=== PATIENT | female | born 1955 | race American Indian/Alaskan Native ===

== ENCOUNTER 2019-01-25 15:12 | Inpatient (IN) | payer OTHER ==
[2019-01-25] MEDS ORDERED: ZOFRAN IV STA (17:02)
[2019-01-25] MEDS ORDERED: BENADRYL IV STA (17:02)
[2019-01-25] MEDS ORDERED: NACL 0.9% 1000 ML 1,000 ML IV ONE (17:02)
[2019-01-25] MEDS ORDERED: REGLAN IV STA (17:02)
--- NOTE | 2019-01-25 18:31 | Emergency Department Report ---
<VENKATESH ROSALES - Last Filed: 01/25/19 18:28> ED General Adult HPI - General Chief complaint: Neuro Symptoms/Deficit Stated complaint: HEADACHE Time Seen by Provider: 01/25/19 16:59 Source: patient, family, EMS Mode of arrival: Ambulatory Limitations: No Limitations - History of Present Illness Initial comments: 63-year-old obese female past medical history of hypertension presents to the emergency department complaining of a right-sided headache eligible by the factors. She reports no numbness or tingling is loss of bowel or bladder no neck pain no fevers, chills, sweats no chest pain or palpitations she tried to t amna Aleve [id number] did not resolve the symptoms persisted for further evaluation and treatment options. Radiation: non-radiation Quality: dull Consistency: constant, intermittent Improves with: none Worsens with: none Associated Symptoms: denies: chest pain, cough, diaphoresis, loss of appetite, nausea/vomiting, shortness of breath, syncope, weakness Treatments Prior to Arrival: none - Related Data Allergies Allergy/AdvReac Type Severity Reaction Status Date / Time No Known Allergies Allergy Unverified 01/25/19 15:37 ED Review of Systems Comment: All other systems reviewed and negative ED Past Medical Hx - Past Medical History Previous Medical History?: Yes Hx Hypertension: Yes Hx Diabetes: Yes - Surgical History Past Surgical History?: No - Social History Smoking Status: Current Every Day Smoker ED Physical Exam - General Limitations: No Limitations General appearance: alert, in no apparent distress - Head Head exam: Present: atraumatic, normocephalic - Eye Eye exam: Present: normal appearance, PERRL, EOMI - ENT ENT exam: Present: mucous membranes moist - Neck Neck exam: Present: normal inspection - Respiratory Respiratory exam: Present: normal lung sounds bilaterally. Absent: respiratory distress - Cardiovascular Cardiovascular Exam: Present: regular rate, normal rhythm. Absent: systolic murmur, diastolic murmur, rubs, gallop - GI/Abdominal GI/Abdominal exam: Present: soft, normal bowel sounds - Extremities Exam Extremities exam: Present: normal inspection - Back Exam Back exam: Present: normal inspection - Neurological Exam Neurological exam: Present: alert, oriented X3, CN II-XII intact, normal gait, reflexes normal. Absent: motor sensory deficit - Psychiatric Psychiatric exam: Present: normal affect, normal mood - Skin Skin exam: Present: warm, dry, intact, normal color. Absent: rash ED Disposition Clinical Impression: Non-hemorrhagic stroke Headache Qualifiers: Headache type: tension-type Headache chronicity pattern: acute headache Intractability: not intractable Qualified Code(s): G44.209 - Tension-type headache, unspecified, not intractable Disposition: DC-01 TO HOME OR SELFCARE Condition: Stable Referrals: PRIMARY CARE, [Primary Care Provider] - 3-5 Days <ALVARADO HARMAN - Last Filed: 01/25/19 20:20> ED Review of Systems ROS: Stated complaint: HEADACHE Other details as noted in HPI ED Course Vital Signs 01/25/19 01/25/19 01/25/19 15:36 15:48 16:00 Temperature 98.1 F Pulse Rate 84 81 Respiratory 18 18 13 Rate Blood Pressure 149/77 149/77 O2 Sat by Pulse 95 95 Oximetry 01/25/19 01/25/19 01/25/19 16:30 17:00 18:00 Temperature Pulse Rate 87 Respiratory 13 Rate Blood Pressure 162/92 162/92 207/119 O2 Sat by Pulse 94 96 94 Oximetry 01/25/19 01/25/19 18:30 20:00 Temperature Pulse Rate 80 Respiratory 14 Rate Blood Pressure 165/79 O2 Sat by Pulse 92 93 Oximetry - Reevaluation(s) Reevaluation #1: 01/25/19 19:23 Patient received from SHELLY Rosales at [address] of head. 01/25/19 19:23 Dr. Dhillon informed me of the CT result findings of Subacute nonhemorrhagic right posterior cerebral artery territory infarction. Labs ordered. 01/25/19 19:25 01/25/19 19:27 Consulted hospitalist for admission. Reevaluation #2: 01/25/19 20:[address] Myers with [facility]. Instructed to admit to hospitalist for MRI/MRA and vessel study. Patient given ASA 325 mg po once while in ER. Consulted hospitalist Dr. Avila and Caitlyn who agreed to admit patient. ED Medical Decision Making - Lab Data Result diagrams: 01/25/19 19:22 01/25/19 19:22 Lab Results 01/25/19 01/25/19 01/25/19 Range/Units 19:22 19:22 19:22 WBC 11.1 H (4.5-11.0) K/mm3 RBC 5.11 H (3.65-5.03) M/mm3 Hgb 14.4 H (10.1-14.3) gm/dl Hct 44.5 H (30.3-42.9) % MCV 87 (79-97) fl MCH 28 (28-32) pg MCHC 32 (30-34) % RDW 13.8 (13.2-15.2) % Plt Count 246 (140-440) K/mm3 Lymph % (Auto) 28.1 (13.4-35.0) % [place] % (Auto) 6.6 (0.0-7.3) % Eos % (Auto) 0.6 (0.0-4.3) % Baso % (Auto) 0.6 (0.0-1.8) % Lymph # 3.1 (1.2-5.4) K/mm3 Wise # 0.7 (0.0-0.8) K/mm3 Eos # 0.1 (0.0-0.4) K/mm3 Baso # 0.1 (0.0-0.1) K/mm3 Seg Neutrophils % 64.1 (40.0-70.0) % Seg Neutrophils # 7.1 (1.8-7.7) K/mm3 PT 13.0 (12.2-14.9) Sec. INR 1.01 (0.87-1.13) APTT 27.5 (24.2-36.6) Sec. Sodium 139 (137-145) mmol/L Potassium 4.3 (3.6-5.0) mmol/L Chloride 103.1 (98-107) mmol/L Carbon Dioxide 26 (22-30) mmol/L Anion Gap 14 mmol/L BUN 12 (7-17) mg/dL Creatinine 0.5 L (0.7-1.2) mg/dL Estimated GFR > 60 ml/min BUN/Creatinine Ratio 24 % Glucose 183 H (65-100) mg/dL Calcium 10.6 H (8.4-10.2) mg/dL Total Bilirubin 0.60 (0.1-1.2) mg/dL AST 9 (5-40) units/L ALT 8 (7-56) units/L Alkaline Phosphatase 114 (35-129) units/L Total Protein 7.5 (6.3-8.2) g/dL Albumin 4.0 (3.9-5) g/dL Albumin/Globulin Ratio 1.1 % - Radiology Data Radiology results: report reviewed CT head/brain wo con INDICATION / CLINICAL INFORMATION: 63 years Female; headache. TECHNIQUE: Routine CT head without contrast. All CT scans at this location are performed using CT dose reduction for ALARA by means of automated exposure control. COMPARISON: None. FINDINGS: BRAIN / INTRACRANIAL CONTENTS: An abnormal CT scan. Subacute nonhemorrhagic right posterior cerebral artery territory infarction is seen. There is mass effect over the atrium of the right lateral ventricle. Right thalamus is not involved. I do not see acute hemorrhage, midline shift. Periventricular low density areas are seen in both cerebral hemispheres probably due to microvascular faint angiopathy. Volume loss is seen in the cerebellar vermis and inferior left cerebellar hemisphere.. Compensatory enlargement of the fourth ventricle is seen. CRANIOCERVICAL JUNCTION: No significant abnormality. ORBITS: No significant abnormality of visualized orbits. SINUSES / MASTOIDS: No significant abnormality of the visualized paranasal sinuses or mastoid air cells. ADDITIONAL FINDINGS: None. IMPRESSION: Subacute nonhemorrhagic right posterior cerebral artery territory infarction. I discussed findings with Dr. Dhillon at 5:42 PM Central daylight saving time. Critical care attestation.: If time is entered above; I have spent that time in minutes in the direct care of this critically ill patient, excluding procedure time. ED Disposition Is pt being admited?: Yes Does the pt Need Aspirin: Yes
--- NOTE | 2019-01-25 18:47 | Cat Scan Report ---
CT head/brain wo con INDICATION / CLINICAL INFORMATION: 63 years Female; headache. TECHNIQUE: Routine CT head without contrast. All CT scans at this location are performed using CT dos e reduction for ALARA by means of automated exposure control. COMPARISON: None. FINDINGS: BRAIN / INTRACRANIAL CONTENTS: An abnormal CT scan. Subacute nonhemorrhagic right posterior cerebral artery territory infarction is seen. There is mass e ffect over the atrium of the right lateral ventricle. Right thalamus is not involved. I do not see ac jada hemorrhage, midline shift. Periventricular low density areas are seen in both cerebral hemispheres probably due to microvascular faint angiopathy. Volume loss is seen in the cerebellar vermis and inferior left cerebellar hemisphere.. Compensatory enlargement of the fourth ventricle is seen. CRANIOCERVICAL JUNCTION: No significant abnormality. ORBITS: No significant abnormality of visualized orbits. SINUSES / MASTOIDS: No significant abnormality of the visualized paranasal sinuses or mastoid air alden ls. ADDITIONAL FINDINGS: None. IMPRESSION: Subacute nonhemorrhagic right posterior cerebral artery territory infarction. I discussed findings with Dr. Dhillon at 5:42 PM Central daylight saving time. Signer Name: Jose Miguel Lomeli MD Signed: 01/25/2019 6:42 PM Workstation Name: [id number]
[2019-01-25] MEDS ORDERED: NORCO 5/325 PO ONE (19:43)
[2019-01-25 19:44] LABS: Basophils # (Auto) 0.1 K/mm3 (0.0-0.1); Basophils % (Auto) 0.6 % (0.0-1.8); Eosinophils # (Auto) 0.1 K/mm3 (0.0-0.4); Eosinophils % (Auto) 0.6 % (0.0-4.3); Hematocrit 44.5 % (30.3-42.9); Hemoglobin 14.4 gm/dl (10.1-14.3); Lymphocytes # (Auto) 3.1 K/mm3 (1.2-5.4); Lymphocytes % (Auto) 28.1 % (13.4-35.0); Mean Corpuscular HGB Conc 32 % (30-34); Mean Corpuscular Volume 87 fl (79-97); Monocytes # (Auto) 0.7 K/mm3 (0.0-0.8); Monocytes % (Auto) 6.6 % (0.0-7.3); Platelet Count 246 K/mm3 (140-440); Red Blood Count 5.11 M/mm3 (3.65-5.03); Red Cell Distribution Width 13.8 % (13.2-15.2)
[2019-01-25 19:56] LABS: INR 1.01 (0.87-1.13)
[2019-01-25 19:57] LABS: Partial Thromboplastin Time 27.5 Sec. (24.2-36.6)
[2019-01-25 20:06] LABS: Alanine Aminotransferase 8 units/L (7-56); BUN/Creatinine Ratio 24; Blood Urea Nitrogen 12 mg/dL (7-17); Calcium 10.6 mg/dL (8.4-10.2); Hemolysis Index 4
[2019-01-25] MEDS ORDERED: ASPIRIN PO ONE (20:13)
[2019-01-25] MEDS ORDERED: REGLAN PO PRN (20:18)
[2019-01-25] MEDS ORDERED: MILK OF MAGNESIA PO PRN (20:18)
[2019-01-25] MEDS ORDERED: TYLENOL PO PRN (20:18)
[2019-01-25] MEDS ORDERED: SODIUM CHLORIDE FLUSH SYRINGE 10 ML IV PRN (20:18)
[2019-01-25] MEDS ORDERED: DULCOLAX PR PRN (20:18)
[2019-01-25] MEDS ORDERED: ZOFRAN IV PRN (20:18)
[2019-01-25] MEDS ORDERED: D50W (25GM) Syringe IV PRN (20:25)
--- NOTE | 2019-01-25 20:56 | History and Physical Report ---
History of Present Illness Date of examination: 01/25/19 Date of admission: 01/25/19 20:18 Chief complaint: Headache, left lower extremity weakness, and left hand numbness History of present illness: 63-year-old -[place] female who is ongoing smoker history of hypertension and diabetes who presents to [facility] ED with complaints of right temporal headache, left hand numbness, left lower extremity weakness, patient gait, and left visual deficits. Patient states her symptoms began Wednesday night when she was sitting in the bathtub and realized that she was unable to get out without assistance. Shortly after she started experiencing right temporal headache, which she describes as a sharp nagging pain and rates it a 9/10. On Wednesday patient started developing an left hand numbness and left visual deficits. Her headache progress without cessation that she decided to come into the ED for further evaluation. She states that she is compliant with her metformin and insulin. However when asked about her compliance with antihypertensive meds admits to partial compliance. Admits to smoking a pack of cigarettes per day for over 40 years. Denies: Nausea, vomiting, diaphoresis, chest pain, slurred speech, cough, shortness of breath, and dyspnea on exertion Past History Past Medical History: diabetes, hypertension Past Surgical History: No surgical history Social history: Lives alone, smoking (smokes one pack per day for the last 40 ye ars) Family history: no significant family history Medications and Allergies Allergies Allergy/AdvReac Type Severity Reaction Status Date / Time No Known Allergies Allergy Unverified 01/25/19 15:37 Home Medications Medication Instructions Recorded Confirmed Last Taken Type Insulin NPH Hum/Reg Insulin Hm 15 units SQ BID 01/25/19 01/25/19 Unknown History [Relion Novolin 70-30 Vial] Metformin HCl [metFORMIN] 1,000 mg PO BID 01/25/19 01/25/19 Unknown History Active Meds: Active Medications Acetaminophen (Tylenol) 650 mg PO Q4H PRN PRN Reason: Pain, Mild (1-3) Acetaminophen (Tylenol) 650 mg PO Q4H PRN PRN Reason: Pain MILD(1-3)/Fever >100.5/[place] Aspirin (Baby Aspirin) 81 mg PO QDAY [place] Atorvastatin Calcium (Lipitor) 40 mg PO QHS [place] Bisacodyl (Dulcolax) 10 mg ND QDAY PRN PRN Reason: Constipation Dextrose (D50w (25gm) Syringe) 50 ml IV PRN PRN PRN Reason: Hypoglycemia Docusate Sodium (Colace) 100 mg PO BID [place] Enoxaparin Sodium (Lovenox) 40 mg SUB-Q QDAY [place] Hydralazine HCl (Apresoline) 10 mg IV Q4HR PRN PRN Reason: Blood Pressure Sodium Chloride (Nacl 0.9% 1000 Ml) 1,000 mls @ 75 mls/hr IV DIRECT [place] Insulin Human Isoph/Insulin Regular (Humulin 70/30) 15 unit SUB-Q BID [place] Insulin Human Lispro (Humalog) 0 unit SUB-Q ACHS [place]; Protocol Magnesium Hydroxide (Milk Of Magnesia) 30 ml PO Q4H PRN PRN Reason: Constipation Metoclopramide HCl (Reglan) 10 mg PO Q6H PRN PRN Reason: Nausea And Vomiting Miscellaneous Medication (Metformin Hcl [Metformin]) 1,000 mg PO BID [place] Nicotine (Habitrol) 14 mg TD QDAY [place] Ondansetron HCl (Zofran) 4 mg IV Q6H PRN PRN Reason: Nausea And Vomiting Oxycodone/Acetaminophen (Percocet 5/325) 1 tab PO Q6H PRN PRN Reason: Pain, Moderate (4-6) Sodium Chloride (Sodium Chloride Flush Syringe 10 Ml) 10 ml IV PRN PRN PRN Reason: LINE FLUSH Review of Systems All systems: negative Eyes: left: decreased vision Musculoskeletal: arm numbness/tingling (left hand), gait dysfunction, other (left lower extremity weakness) Neurological: headaches (right temporal region) Exam - Constitutional Vitals: Temp Pulse Resp BP Pulse Ox 98.1 F 80 14 165/79 93 01/25/19 15:36 01/25/19 20:00 01/25/19 20:00 01/25/19 20:00 01/25/19 20:00 Results - Labs CBC & Chem 7: 01/25/19 19:22 01/25/19 19:22 Labs: Laboratory Last Values WBC 11.1 K/mm3 (4.5-11.0) H 01/25/19 19:22 RBC 5.11 M/mm3 (3.65-5.03) H 01/25/19 19:22 Hgb 14.4 gm/dl (10.1-14.3) H 01/25/19 19: Hct 44.5 % (30.3-42.9) H 01/25/19 19: MCV 87 fl (79-97) 01/25/19 19: MCH 28 pg (28-32) 01/25/19 19: MCHC 32 % (30-34) 01/25/19 19: RDW 13.8 % (13.2-15.2) 01/25/19: Plt Count 246 K/mm3 (140-440) 01/25/19 19: Lymph % (Auto) 28.1 % (13.4-35.0) 01/25/19: [place] % (Auto) 6.6 % (0.0-7.3) 01/25/19: Eos % (Auto) 0.6 % (0.0-4.3) 01/25/19: Baso % (Auto) 0.6 % (0.0-1.8) 01/25/19: Lymph # 3.1 K/mm3 (1.2-5.4) 01/25/19: [place] # 0.7 K/mm3 (0.0-0.8) 01/25/19: Eos # 0.1 K/mm3 (0.0-0.4) 01/25/19: Baso # 0.1 K/mm3 (0.0-0.1) 01/25/19: Seg Neutrophils % 64.1 % (40.0-70.0) 01/25/19: Seg Neutrophils # 7.1 K/mm3 (1.8-7.7) 01/25/19: PT 13.0 Sec. (12.2-14.9) 01/25/19: INR 1.01 (0.87-1.13) 01/25/19: APTT 27.5 Sec. (24.2-36.6) 01/25/19 19:22 Sodium 139 mmol/L (137-145) 01/25/19 19:22 Potassium 4.3 mmol/L (3.6-5.0) 01/25/19: Chloride 103.1 mmol/L (98-107) 01/25/19 19:22 Carbon Dioxide 26 mmol/L (22-30) 01/25/19 19:22 Anion Gap 14 mmol/L 01/25/19 19:22 BUN 12 mg/dL (7-17) 01/25/19 19:22 Creatinine 0.5 mg/dL (0.7-1.2) L 01/25/19 19:22 Estimated GFR > 60 ml/min 01/25/19 19:22 BUN/Creatinine Ratio 24 % 01/25/19 19:22 Glucose 183 mg/dL (65-100) H 01/25/19 19:22 Calcium 10.6 mg/dL (8.4-10.2) H 01/25/19 19:22 Total Bilirubin 0.60 mg/dL (0.1-1.2) 01/25/19 19:22 AST 9 units/L (5-40) 01/25/19 19:22 ALT 8 units/L (7-56) 01/25/19 19:22 Alkaline Phosphatase 114 units/L (35-129) 01/25/19 19:22 Total Protein 7.5 g/dL (6.3-8.2) 01/25/19 19:22 Albumin 4.0 g/dL (3.9-5) 01/25/19 19:22 Albumin/Globulin Ratio 1.1 % 01/25/19 19:22 - Imaging and Cardiology Imaging and Cardiology: CT Head: FINDINGS: BRAIN / INTRACRANIAL CONTENTS: An abnormal CT scan. Subacute nonhemorrhagic right posterior cerebral artery territory infarction is seen. There is mass effect over the atrium of the right lateral ventricle. Right thalamus is not involved. I do not see acute hemorrhage, midline shift. Periventricular low density areas are seen in both cerebral hemispheres probably due to microvascular faint angiopathy. Volume loss is seen in the cerebellar vermis and inferior left cerebellar hemisphere. Compensatory enlargement of the fourth ventricle is seen. CRANIOCERVICAL JUNCTION: No significant abnormality. ORBITS: No significant abnormality of visualized orbits. SINUSES / MASTOIDS: No significant abnormality of the visualized paranasal sinuses or mastoid air cells. ADDITIONAL FINDINGS: None. IMPRESSION: Subacute nonhemorrhagic right posterior cerebral artery territory infarction. Assessment and Plan Assessment and plan: 63-year-old -[place] female who is ongoing smoker history of hypertension and diabetes who presents to [facility] ED with complaints of right temporal headache, left hand numbness, left lower extremity weakness, patient gait, and left visual deficits for the past 2 days. CVA -CT Head showed Subacute nonhemorrhagic right posterior cerebral artery territory infarction. -MRI/ MRA Head, bilateral carotid Doppler, Echo pending -Tele Neuro consulted and recommendations appreciated -Neurology consulted -Neuro Checks -PT/OT eval pending -Lipid panel pending -For permissive hypertension -Not candidate for TPA -Start ASA and statin Hypertensive urgency -BP on admission 207/119 -Hx Hypertension -Questionable compliance with antihypertensive meds -Continue to monitor BP -Allow for permissive hypertension -IV antihypertensive when necessary Headache -Likely secondary to hypertensive urgency and CVA -Continue supportive care DM2 -HgbA1c pending -Continue metformin and scheduled insulin -SSI coverage prn Tobacco abuse -Current every day smoker -Counseled for cessation -Nicotine patch when necessary Leukocytosis -Likely inflammatory response -WBC 11.1 -Afebrile -Continue to monitor CBC DVT PPX -on Lovenox Advance Directives: No VTE prophylaxis?: Chemical Plan of care discussed with patient/family: Yes
[2019-01-25] MEDS ORDERED: NACL 0.9% 1000 ML 1,000 ML IV SCH (21:00)
[2019-01-25] MEDS: HumaLOG SUB-Q SCH (22:18)
[2019-01-25] MEDS: COLACE PO SCH (22:18)
[2019-01-26] MEDS: GLUCOPHAGE PO SCH ×3 (00:02→17:31)
[2019-01-26] MEDS: APRESOLINE IV PRN ×2 (03:53→17:26)
[2019-01-26] MEDS: PERCOCET 5/325 PO PRN ×3 (03:55→17:27)
[2019-01-26 05:50] LABS: Basophils # (Auto) 0.1 K/mm3 (0.0-0.1); Basophils % (Auto) 0.5 % (0.0-1.8); Eosinophils # (Auto) 0.1 K/mm3 (0.0-0.4); Eosinophils % (Auto) 0.7 % (0.0-4.3); Hematocrit 41.8 % (30.3-42.9); Hemoglobin 13.8 gm/dl (10.1-14.3); Lymphocytes # (Auto) 3.4 K/mm3 (1.2-5.4); Lymphocytes % (Auto) 28.5 % (13.4-35.0); Mean Corpuscular HGB Conc 33 % (30-34); Mean Corpuscular Volume 86 fl (79-97); Monocytes % (Auto) 8.3 % (0.0-7.3); Platelet Count 224 K/mm3 (140-440); Red Blood Count 4.86 M/mm3 (3.65-5.03); Red Cell Distribution Width 13.5 % (13.2-15.2)
[2019-01-26 06:59] LABS: BUN/Creatinine Ratio 28; Blood Urea Nitrogen 11 mg/dL (7-17); Calcium 10.5 mg/dL (8.4-10.2); Chol/HDL Ratio 3.56 %; HDL Cholesterol 53 mg/dL (40-59); Hemolysis Index 0; LDL Cholesterol,Direct 118 mg/dL (50-130)
--- NOTE | 2019-01-26 08:34 | Vascular Lab Report ---
BILATERAL CAROTID DOPPLER ULTRASOUND INDICATION : stroke TECHNIQUE: Grayscale and color Doppler imaging performed through the neck. COMPARISON: None FINDINGS: Right: There is no significant atherosclerotic disease. Peak systolic velocity in the CCA is 87 cm/ s with end-diastolic velocity of 21 cm/s. Peak systolic velocity in the proximal ICA is 72 cm/s with end-diastolic velocity of 23 cm/s. ICA to CCA ratio is less than 2. There is antegrade flow in the E CA and the vertebral artery. Left: There is no significant atherosclerotic disease. Peak systolic velocity in the CCA is 85 cm/s w ith end-diastolic velocity of 14 cm/s. Peak systolic velocity in the proximal ICA is 116 cm/s with en d-diastolic velocity of 16 cm/s. ICA to CCA ratio is less than 2. There is antegrade flow in the ECA and the vertebral artery. IMPRESSION: No hemodynamically significant stenosis by NASCET criteria. There is less than 50% lumina l narrowing throughout both carotid systems. Signer Name: Corey Shields Jr, MD Signed: 01/26/2019 8:29 AM Workstation Name: [id number]
[2019-01-26] MEDS: BABY ASPIRIN PO SCH (10:21)
[2019-01-26] MEDS: COLACE PO SCH ×2 (10:22→21:48)
[2019-01-26] MEDS: HABITROL TD SCH (10:22)
[2019-01-26] MEDS: ENOXAPARIN SUB-Q SCH (10:23)
[2019-01-26] MEDS: HumaLOG SUB-Q SCH ×4 (10:36→21:57)
--- NOTE | 2019-01-26 14:18 | Progress Note ---
Assessment and Plan Assessment and plan: 63-year-old -Togolese female who is ongoing smoker history of hypertension and diabetes who presents to [facility] ED with complaints of right temporal headache, left hand numbness, left lower extremity weakness, patient gait, and left visual deficits for the past 2 days. CVA -CT Head showed Subacute nonhemorrhagic right posterior cerebral artery territory infarction. -MRI/ MRA Head, bilateral carotid Doppler, Echo pending -Neurology consulted and said will see the patient -Telemetry neurology recommended not a candidate for TPA -PT/OT evaluation -Start ASA and statin. LDL is 112 Hypertensive urgency -BP is 184/103 -Hx Hypertension -Allow for permissive hypertension -IV antihypertensive when necessary Headache -Likely secondary to hypertensive urgency and CVA -Continue supportive care - 10 control DM2 -HgbA1c is 9.3 -Continue metformin and scheduled insulin -SSI coverage prn Tobacco abuse -Current every day smoker -Counseled for cessation -Nicotine patch Leukocytosis -Likely reactive -No sign of infection, we will continue to monitor DVT PPX -on Lovenox Disposition; will finish w/u. Discussed with CM, patient is unfunded and her house has stairs. History Interval history: Patient was seen and evaluated this morning at the bedside Patient has left-sided weakness and neglect Hospitalist Physical - Physical exam Narrative exam: Not in cardiopulmonary distress. The patient is obese. Vital signs as documented. Head exam is unremarkable. No scleral icterus . Neck is without jugular venous distension, thyromegaly, or carotid bruits. Lungs are clear to auscultation. Cardiac exam reveals regular rate and Rhythm. Abdominal exam reveals normal bowel sounds. Extremities are nonedematous and both femoral and pedal pulses are normal. 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 - Constitutional Vitals: Temp Pulse Resp BP Pulse Ox 98.2 F 75 18 184/103 99 01/26/19 03:35 01/26/19 10:18 01/26/19 03:35 01/26/19 10:18 01/26/19 10:18 Results - Labs CBC & Chem 7: 01/26/19 05:02 01/26/19 05:02 Labs: Laboratory Last Values WBC 11.8 K/mm3 (4.5-11.0) H 01/26/19 05:02 RBC 4.86 M/mm3 (3.65-5.03) 01/26/19 05:02 Hgb 13.8 gm/dl (10.1-14.3) 01/26/19 05:02 Hct 41.8 % (30.3-42.9) 01/26/19 05:02 MCV 86 fl (79-97) 01/26/19 05:02 MCH 28 pg (28-32) 01/26/19 05:02 MCHC 33 % (30-34) 01/26/19 05:02 RDW 13.5 % (13.2-15.2) 01/26/19 05:02 Plt Count 224 K/mm3 (140-440) 01/26/19 05:02 Lymph % (Auto) 28.5 % (13.4-35.0) 01/26/19 05:02 [place] % (Auto) 8.3 % (0.0-7.3) H 01/26/19 05:02 Eos % (Auto) 0.7 % (0.0-4.3) 01/26/19 05:02 Baso % (Auto) 0.5 % (0.0-1.8) 01/26/19 05:02 Lymph # 3.4 K/mm3 (1.2-5.4) 01/26/19 05:02 [place] # 1.0 K/mm3 (0.0-0.8) H 01/26/19 05:02 Eos # 0.1 K/mm3 (0.0-0.4) 01/26/19 05:02 Baso # 0.1 K/mm3 (0.0-0.1) 01/26/19 05:02 Seg Neutrophils % 62.0 % (40.0-70.0) 01/26/19 05:02 Seg Neutrophils # 7.3 K/mm3 (1.8-7.7) 01/26/19 05:02 PT 13.0 Sec. (12.2-14.9) 01/25/19 19:22 INR 1.01 (0.87-1.13) 01/25/19 19:22 APTT 27.5 Sec. (24.2-36.6) 01/25/19 19:22 Sodium 140 mmol/L (137-145) 01/26/19 05:02 Potassium 3.8 mmol/L (3.6-5.0) 01/26/19 05:02 Chloride 102.4 mmol/L (98-107) 01/26/19 05:02 Carbon Dioxide 25 mmol/L (22-30) 01/26/19 05:02 Anion Gap 16 mmol/L 01/26/19 05:02 BUN 11 mg/dL (7-17) 01/26/19 05:02 Creatinine 0.4 mg/dL (0.7-1.2) L 01/26/19 05:02 Estimated GFR > 60 ml/min 01/26/19 05:02 BUN/Creatinine Ratio 28 % 01/26/19 05:02 Glucose 157 mg/dL (65-100) H 01/26/19 05:02 POC Glucose 175 (70-105) H 01/26/19 12:13 Hemoglobin A1c 9.3 % (4-6) H 01/26/19 05:02 Calcium 10.5 mg/dL (8.4-10.2) H 01/26/19 05:02 Total Bilirubin 0.60 mg/dL (0.1-1.2) 01/25/19 19:22 AST 9 units/L (5-40) 01/25/19 19:22 ALT 8 units/L (7-56) 01/25/19 19:22 Alkaline Phosphatase 114 units/L (35-129) 01/25/19 19:22 Troponin T < 0.010 ng/mL (0.00-0.029) 01/26/19 05:02 Total Protein 7.5 g/dL (6.3-8.2) 01/25/19 19:22 Albumin 4.0 g/dL (3.9-5) 01/25/19 19:22 Albumin/Globulin Ratio 1.1 % 01/25/19 19:22 Triglycerides 149 mg/dL (2-149) 01/26/19 05:02 Cholesterol 189 mg/dL (50-199) 01/26/19 05:02 LDL Cholesterol Direct 118 mg/dL (50-130) 01/26/19 05:02 HDL Cholesterol 53 mg/dL (40-59) 01/26/19 05:02 Cholesterol/HDL Ratio 3.56 % 01/26/19 05:02 Active Medications - Current Medications Current Medications: Generic Name Dose Route Start Last Admin Trade Name Freq PRN Reason Stop Dose Admin Acetaminophen 650 mg 01/25/19 20:25 Tylenol PO Q4H PRN Pain MILD(1-3)/Fever >100.5/PHILLIPS Aspirin 81 mg 01/26/19 10:00 01/26/19 10:21 Baby Aspirin PO 81 mg QDAY [place] Administration Atorvastatin Calcium 40 mg 01/25/19 22:00 01/25/19 22:18 Lipitor PO 40 mg QHS [place] Administration Bisacodyl 10 mg 01/25/19 20:18 Dulcolax [place] QDAY PRN Constipation Dextrose 50 ml 01/25/19 20:25 D50w (25gm) Syringe IV PRN PRN Hypoglycemia Docusate Sodium 100 mg 01/25/19 22:00 01/26/19 10:22 Colace PO 100 mg BID [place] Administration Enoxaparin Sodium 40 mg 01/26/19 10:00 01/26/19 10:23 Lovenox SUB-Q 40 mg QDAY [place] Administration Hydralazine HCl 10 mg 01/25/19 20:28 01/26/19 03:53 Apresoline IV 10 mg Q4HR PRN Administration Blood Pressure Sodium Chloride 1,000 mls @ 75 mls/hr 01/25/19 21:00 01/25/19 23:11 Nacl 0.9% 1000 Ml IV 75 mls/hr DIRECT [place] Administration Insulin Human Isoph/Insulin Regular 15 unit 01/25/19 22:00 01/26/19 10:36 Humulin 70/30 SUB-Q 15 unit BID [place] Administration Insulin Human Lispro 0 unit 01/25/19 22:00 01/26/19 12:53 Humalog SUB-Q 2 unit ACHS [place] Administration Protocol Magnesium Hydroxide 30 ml 01/25/19 20:18 Milk Of Magnesia PO Q4H PRN Constipation Metformin HCl 1,000 mg 01/25/19 22:00 01/26/19 10:21 Glucophage PO 1,000 mg BIDDIAB [place] Administration Metoclopramide HCl 10 mg 01/25/19 20:18 Reglan PO Q6H PRN Nausea And Vomiting Nicotine 14 mg 01/26/19 10:00 01/26/19 10:22 Habitrol TD 14 mg QDAY [place] Administration Ondansetron HCl 4 mg 01/25/19 20:18 Zofran IV Q6H PRN Nausea And Vomiting Oxycodone/Acetaminophen 1 tab 01/25/19 20:18 01/26/19 10:22 Percocet 5/325 PO 1 tab Q6H PRN Administration Pain, Moderate (4-6) Sodium Chloride 10 ml 01/25/19 20:18 Sodium Chloride Flush Syringe 10 Ml IV PRN PRN LINE FLUSH Nutrition/Malnutrition Assess - Dietary Evaluation Nutrition/Malnutrition Findings: Nutrition Notes Start: 01/26/19 10:50 Freq: Status: Active Protocol: Document 01/26/19 10:50 PS (Rec: 01/26/19 11:41 PS [id number]) Co-Sign 01/26/19 10:50 LM Nutrition Notes Need for Assessment generated from: MD Order,Education Initial or Follow up Assessment Current Diagnosis Diabetes,Hypertension Current Diet Cardiac Consistent Carbohyrdate Diet Labs/Tests Creat. 0.4 Glu 157 A1C 9.3 Ca 10.5 Pertinent Medications Reviewed Height 5 ft 5 in Weight 83.7 kg [place] Body Weight (kg) 56.81 BMI 30.7 Intake Prior to Admission Fair Weight Status Obese Subjective/Other Information Consult for diet education. Pt . 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 Pt. had appetite and was hungry for breakfast at hospital but did not like food . A cereal alternative was given to pt to eat. Pt. stated she was taking her medications at home and was open to taking the Carb counting with diabetes handout . Burn Absent Trauma Absent Minimum of two criteria No physical signs of malnutrition #2 Nutrition Diagnosis Food and nutrition-related knowledge deficit Etiology inadequate carbohydrate counting/diabetes education As Evidenced by Signs and Symptoms A1C of 9.3% and pt. not showing interest after asking if had prior education on diabetes #1 Nutrition Diagnosis Inadequate oral intake Etiology lack of appetite As Evidenced by Signs and Symptoms pt. stating she has been eating about 50% of her normal diet for 4 days. Is patient on ventilator? No Is Patient Ambulatory and/or Out of Bed Yes REE-(Long-St. Jeor-ambulatory/OOB) [ 1810.744 [id number]] Kcal/Kg value to use for calculation 16 Approximate Energy Requirements Using 1339 kcal/Kg Calculation Used for Recommendations Kcal/kg Additional Notes Pro: 70-84 g (1-1.2 g/kg AdBW) Fluids: 1 ml/kcal Nutrition Intervention Change Diet Order: Continue Cardiac Consistent Carbohydrate Diet Teaching Recipient Patient,Family Learning Readiness Good Teaching Methods Discussion,Handout Response to Teaching Verbalize understanding Education Handouts Provided Carb Counting for Diabetes Barriers to Learning No Barriers RD phone number provided Yes Patient aware of follow up options Yes Goal #1 Meet 80% of energy/protein needs Anticipated Discharge Needs: Cardiac Consistent Carbohydrate Diet Follow-Up By: 01/31/19 Additional Comments Follow up for PO intakes
[2019-01-26] MEDS ORDERED: ATIVAN IV ONE (21:41)
--- NOTE | 2019-01-26 21:47 | Consultation ---
History of Present Illness Consult date: 01/26/19 Reason for Consult: Stroke Chief complaint: Left sided weakness, visual changes History of present illness: Patient is a 63 y/o woman w/ a h/o HTN, DM, obesity. On Wednesday, at about 6pm, she noted that she was having difficulty getting out of the bathtub. At that time, she also began to experience Lt. hand numbness. That night, she experienced Rt. sided headaches, which have persisted. Over the next two days, she began to notice difficulty with walking due to LLE weakness, and also noted visual changes in the left visual field, as she was not able to see as well on the left. Patient came to ER for further evaluation. She states that she was non-compliant with Anti-HTN meds. Past History Past Medical History: diabetes, hypertension, other (obesity) Past Surgical History: No surgical history Social history: Lives alone, smoking (smokes one pack per day for the last 40 years) Family history: no significant family history Medications and Allergies Allergies Allergy/AdvReac Type Severity Reaction Status Date / Time No Known Allergies Allergy Unverified 01/25/19 15:37 Home Medications Medication Instructions Recorded Confirmed Last Taken Type Insulin NPH Hum/Reg Insulin Hm 15 units SQ BID 01/25/19 01/25/19 Unknown History [Relion Novolin 70-30 Vial] Metformin HCl [metFORMIN] 1,000 mg PO BID 01/25/19 01/25/19 Unknown History Active Meds: Active Medications Acetaminophen (Tylenol) 650 mg PO Q4H PRN PRN Reason: Pain MILD(1-3)/Fever >100.5/PHILLIPS Aspirin (Baby Aspirin) 81 mg PO QDAY [facility] Last Admin: 01/26/19 10:21 Dose: 81 mg Documented by: Atorvastatin Calcium (Lipitor) 40 mg PO QHS [facility] Last Admin: 01/25/19 22:18 Dose: 40 mg Documented by: Bisacodyl (Dulcolax) 10 mg CO QDAY PRN PRN Reason: Constipation Dextrose (D50w (25gm) Syringe) 50 ml IV PRN PRN PRN Reason: Hypoglycemia Docusate Sodium (Colace) 100 mg PO BID [facility] Last Admin: 01/26/19 10:22 Dose: 100 mg Documented by: Enoxaparin Sodium (Lovenox) 40 mg SUB-Q QDAY [facility] Last Admin: 01/26/19 10:23 Dose: 40 mg Documented by: Hydralazine HCl (Apresoline) 10 mg IV Q4HR PRN PRN Reason: Blood Pressure Last Admin: 01/26/19 17:26 Dose: 10 mg Documented by: Sodium Chloride (Nacl 0.9% 1000 Ml) 1,000 mls @ 75 mls/hr IV DIRECT [facility] Last Admin: 01/25/19 23:11 Dose: 75 mls/hr Documented by: Insulin Human Isoph/Insulin Regular (Humulin 70/30) 15 unit SUB-Q BID [facility] Last Admin: 01/26/19 10:36 Dose: 15 unit Documented by: Insulin Human Lispro (Humalog) 0 unit SUB-Q ACHS [facility]; Protocol Last Admin: 01/26/19 17:15 Dose: Not Given Documented by: Lorazepam (Ativan) 1 mg IV ONCE ONE Stop: 01/26/19 21:42 Magnesium Hydroxide (Milk Of Magnesia) 30 ml PO Q4H PRN PRN Reason: Constipation Metformin HCl (Glucophage) 1,000 mg PO BIDDIAB [facility] Last Admin: 01/26/19 17:31 Dose: 1,000 mg Documented by: Metoclopramide HCl (Reglan) 10 mg PO Q6H PRN PRN Reason: Nausea And Vomiting Nicotine (Habitrol) 14 mg TD QDAY [facility] Last Admin: 01/26/19 10:22 Dose: 14 mg Documented by: Ondansetron HCl (Zofran) 4 mg IV Q6H PRN PRN Reason: Nausea And Vomiting Oxycodone/Acetaminophen (Percocet 5/325) 1 tab PO Q6H PRN PRN Reason: Pain, Moderate (4-6) Last Admin: 01/26/19 17:27 Dose: 1 tab Documented by: Sodium Chloride (Sodium Chloride Flush Syringe 10 Ml) 10 ml IV PRN PRN PRN Reason: LINE FLUSH Review of Systems All systems: negative Neurological: weakness, numbness, headaches, loss of vision Physical Examination - Vital Signs Vital Signs: Vital Signs Temp Pulse Resp BP Pulse Ox 98.1 F 84 18 149/77 95 01/25/19 15:36 01/25/19 15:36 01/25/19 15:36 01/25/19 15:36 01/25/19 15:36 - Physical Exam Narrative exam: Patient is alert, awake, Oriented X4, follows complex commands. No dysarhtria or aphasia noted. PERRL, EOMI, noted to have Lt. HH, no facial weakness noted, b/l intact to LT, tongue midline. RUE/RLE: 5/5, LUE/LLE: 4/5. noted to have sensory neglect on the LUE/LLE. 2+ reflexxes throughout. B/l intact to FTN and HTS. - Constitutional General appearance: comfortable - EENT EENT: Present: ATNC, PERRL, mucous membranes moist, hearing intact - Cardiovascular Cardiovascular: Present: regular rate, normal S1, normal S2 Extremities: Present: no clubbing, cyanosis, no inflammation - Gastrointestinal Gastrointestinal: Present: normoactive bowel sounds, soft, non-tender - Integumentary Integumentary: Present: normal - Musculoskeletal Musculoskeletal: Present: no fluid collection, no pain - Psychiatric Psychiatric: Present: mood/affect appropriate - Level of Consciousness 1a. Level of Consciousness: alert/keenly responsive - LOC Questions 1b. LOC Questions: answers both correctly - LOC Command 1c. LOC Commands: performs tasks correctly - Best Gaze 2. Best Gaze: normal - Visual 3. Visual: complete hemianopia - Facial Palsy 4. Facial Palsy: normal symmetrical movement - Motor Arm 5a. Motor Arm Left: drift 5b. Motor Arm Right: no drift - Motor Leg 6a. Motor Leg Left: drift 6b. Motor Leg Right: no drift - Limb Ataxia 7. Limb Ataxia: absent - Sensory 8. Sensory: normal - Best Language 9. Best Language: no aphasia - Dysarthria 10. Dysarthria: normal - Extinction and Inattention 11. Extinction/Inattention: visual/tactile inattention - Scoring Total Score: 5 Stroke Severity: Moderate Stroke Results - Laboratory Findings CBC and BMP: 01/26/19 05:02 01/26/19 05:02 Abnormal Lab Findings: Abnormal Labs 01/25/19 01/25/19 01/25/19 19:22 19:22 22:20 WBC 11.1 H RBC 5.11 H Hgb 14.4 H Hct 44.5 H Stearns % (Auto) Ste[place]s # Creatinine 0.5 L Glucose 183 H POC Glucose 188 H Hemoglobin A1c Calcium 10.6 H 01/26/19 01/26/19 01/26/19 05:02 05:02 05:02 WBC 11.8 H RBC Hgb Hct [place] % (Auto) 8.3 H [place]s # 1.0 H Creatinine 0.4 L Glucose 157 H POC Glucose Hemoglobin A1c 9.3 H Calcium 10.5 H 01/26/19 01/26/19 01/26/19 10:24 12:13 16:35 WBC RBC Hgb Hct [place] % (Auto) Ste[place]s # Creatinine Glucose POC Glucose 204 H 175 H 136 H Hemoglobin A1c Calcium 01/26/19 20:49 WBC RBC Hgb Hct Ste[place]s % (Auto) Ste[place]s # Creatinine Glucose POC Glucose 183 H Hemoglobin A1c Calcium Assessment and Plan atsarah is a 63 y/o woman w/ a h/o HTN, DM, obesity, who p/w left sided weakness, left visual field deficits. According to the patient's clinical findings, she has had an acute ischemic stroke, as is evidenced on imaging. Plan: 1. Stroke: - CT head showed Rt. 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 ASA 81mg daily - Cont. statin. Current LDL 118. Goal LDL < 70. - HbA1C 9.3 - PT/OT/ST - DVT Ppx: recommend lovenox - Check UA, as patient has elevated WBC - May consider checking YULISSA, due to leukocytosis, to rule out endocarditis, but will first await results of CTA head/neck. - Telemetry monitoring while in house 2. Hypertension: - Recommend target BP of normotension, as it has been >48 hours since symptom onset. -Will continue to monitor neurologic status. Thank you for allowing me to take part in the care of this patient. Waylon Hoang MD Neurology
[2019-01-27] MEDS: APRESOLINE IV PRN ×4 (00:25→17:03)
--- NOTE | 2019-01-27 02:14 | Cat Scan Report ---
CTA neck with and without contrast CLINICAL HISTORY: Cerebrovascular accident. Technique: Multiple contiguous postcontrast axial CT images of the neck were obtained at 0.63 mm inte rvals. 3 plane MIP reconstructions were produced. Precontrast localizing images were also performed. All CT scans at this location are performed using the CT dose reduction for ALARA by means of automat ed exposure control. FINDINGS: There is no significant stenosis involving carotid arteries by NASCET criteria. The origins of the vertebral arteries are scattered by the degree of motion. However, there is no clear evidence of significant narrowing involving the vertebral arteries. The arch vessels are are unremarkable. There is extensive opacification of the right mastoid air cells which appears to extend into the righ t middle ear cavity. Milder findings are seen on the left. IMPRESSION: There is no significant stenosis involving the carotid or vertebral arteries by NASCET criteria. There is extensive opacification involving the right mastoid air cells which extends to the right mid dle ear cavity. Milder findings are seen on the left. Signer Name: Nabil No MD Signed: 01/27/2019 2:10 AM Workstation Name: [id number]
--- NOTE | 2019-01-27 02:22 | Cat Scan Report ---
CTA head with and without IV contrast. CLINICAL HISTORY: Cerebrovascular accident. Technique: Multiple contiguous postcontrast CT images of the head were obtained at 0.63 mm intervals. 3 plane MIP reconstructions were obtained. Precontrast localizing images were also performed. CT scan s at this location are performed using the CT dose reduction for ALATopVisible by means of automated exposure control. FINDINGS: There is occlusion of the P2 segment of the right PULL WORKER. The finding to correlate with the [facility] CT head of 01/25/2019 demonstrating a large subacute infarct involving the right PULL WORKER distributio n. This mild irregularity of the vertebrobasilar system compatible with mild atherosclerotic disease at. However, there is no significant focal stenosis. There is extensive atherosclerotic calcification involving the distal internal carotid arteries with mild segmental narrowing bilaterally. There is also mild irregularity of the anterior circulation ves sels, particularly involving the right MCA compatible with atherosclerotic disease at. There is assoc iated mild narrowing of the right M1 segment. There is no CTA evidence of intracranial aneurysm. The dural venous sinuses opacify with contrast. There is opacification involving mastoid air cells, greater on the right with extension into the righ t middle ear cavity. IMPRESSION: There is occlusion of the P2 segment of the right PULL WORKER with evolving large right PULL WORKER infarct as descri bed. There is extensive atherosclerotic calcification involving distal internal carotid arteries with mild segmental narrowing bilaterally. Signer Name: Nabil No MD Signed: 01/27/2019 2:18 AM Workstation Name: [id number]
[2019-01-27 05:33] LABS: Basophils % (Auto) 0.2 % (0.0-1.8); Eosinophils # (Auto) 0.1 K/mm3 (0.0-0.4); Eosinophils % (Auto) 0.6 % (0.0-4.3); Hematocrit 44.4 % (30.3-42.9); Hemoglobin 14.8 gm/dl (10.1-14.3); Lymphocytes # (Auto) 2.6 K/mm3 (1.2-5.4); Lymphocytes % (Auto) 22.1 % (13.4-35.0); Mean Corpuscular HGB Conc 33 % (30-34); Mean Corpuscular Volume 86 fl (79-97); Monocytes # (Auto) 0.8 K/mm3 (0.0-0.8); Monocytes % (Auto) 7.1 % (0.0-7.3); Platelet Count 245 K/mm3 (140-440); Red Blood Count 5.16 M/mm3 (3.65-5.03); Red Cell Distribution Width 13.5 % (13.2-15.2)
[2019-01-27 05:49] LABS: BUN/Creatinine Ratio 30; Blood Urea Nitrogen 9 mg/dL (7-17); Calcium 10.7 mg/dL (8.4-10.2)
[2019-01-27 05:50] LABS: Hemolysis Index 6
[2019-01-27] MEDS: HumaLOG SUB-Q SCH ×4 (08:30→22:22)
[2019-01-27] MEDS: COLACE PO SCH ×2 (09:33→22:21)
[2019-01-27] MEDS: GLUCOPHAGE PO SCH ×2 (09:35→17:09)
[2019-01-27] MEDS: BABY ASPIRIN PO SCH (09:35)
[2019-01-27] MEDS: HABITROL TD SCH (09:35)
[2019-01-27] MEDS: ENOXAPARIN SUB-Q SCH (09:37)
--- NOTE | 2019-01-27 12:42 | Consultation ---
History of Present Illness Consult date: 01/27/19 History of present illness: 63 year old female admitted with stroke. Head CTA showing occlusion of right P2 with large stroke. MRI pending. Tele reviewed and there is no evidence of atrial fibrillation. Past medical history is pertinent for hypertension, diabetes mellitus and non-compliance. Patient also a chronic smoker. Past History Past Medical History: diabetes, hypertension, other (obesity) Past Surgical History: No surgical history Social history: Lives alone, smoking (smokes one pack per day for the last 40 years) Family history: no significant family history Medications and Allergies Allergies Allergy/AdvReac Type Severity Reaction Status Date / Time No Known Allergies Allergy Unverified 01/25/19 15:37 Home Medications Medication Instructions Recorded Confirmed Last Taken Type Insulin NPH Hum/Reg Insulin Hm 15 units SQ BID 01/25/19 01/25/19 Unknown History [Relion Novolin 70-30 Vial] Metformin HCl [metFORMIN] 1,000 mg PO BID 01/25/19 01/25/19 Unknown History Active Meds: Active Medications Acetaminophen (Tylenol) 650 mg PO Q4H PRN PRN Reason: Pain MILD(1-3)/Fever >100.5/PH[place]IPS Aspirin (Baby Aspirin) 81 mg PO QDAY [facility] Last Admin: 01/27/19 09:35 Dose: 81 mg Documented by: Atorvastatin Calcium (Lipitor) 40 mg PO QHS [facility] Last Admin: 01/26/19 21:48 Dose: 40 mg Documented by: Bisacodyl (Dulcolax) 10 mg SC QDAY PRN PRN Reason: Constipation Dextrose (D50w (25gm) Syringe) 50 ml IV PRN PRN PRN Reason: Hypoglycemia Docusate Sodium (Colace) 100 mg PO BID [facility] Last Admin: 01/27/19 09:33 Dose: 100 mg Documented by: Enoxaparin Sodium (Lovenox) 40 mg SUB-Q QDAY [facility] Last Admin: 01/27/19 09:37 Dose: 40 mg Documented by: Hydralazine HCl (Apresoline) 10 mg IV Q4HR PRN PRN Reason: Blood Pressure Last Admin: 01/27/19 12:38 Dose: 10 mg Documented by: Sodium Chloride (Nacl 0.9% 1000 Ml) 1,000 mls @ 75 mls/hr IV DIRECT [facility] Last Admin: 01/25/19 23:11 Dose: 75 mls/hr Documented by: Insulin Human Isoph/Insulin Regular (Humulin 70/30) 15 unit SUB-Q BID [facility] Last Admin: 01/27/19 09:36 Dose: 15 unit Documented by: Insulin Human Lispro (Humalog) 0 unit SUB-Q ACHS [facility]; Protocol Last Admin: 01/27/19 12:36 Dose: 2 unit Documented by: Magnesium Hydroxide (Milk Of Magnesia) 30 ml PO Q4H PRN PRN Reason: Constipation Metformin HCl (Glucophage) 1,000 mg PO BIDDIAB [facility] Last Admin: 01/27/19 09:35 Dose: 1,000 mg Documented by: Metoclopramide HCl (Reglan) 10 mg PO Q6H PRN PRN Reason: Nausea And Vomiting Nicotine (Habitrol) 14 mg TD QDAY [facility] Last Admin: 01/27/19 09:35 Dose: 14 mg Documented by: Ondansetron HCl (Zofran) 4 mg IV Q6H PRN PRN Reason: Nausea And Vomiting Oxycodone/Acetaminophen (Percocet 5/325) 1 tab PO Q6H PRN PRN Reason: Pain, Moderate (4-6) Last Admin: 01/26/19 17:27 Dose: 1 tab Documented by: Sodium Chloride (Sodium Chloride Flush Syringe 10 Ml) 10 ml IV PRN PRN PRN Reason: LINE FLUSH Review of Systems All systems: negative Physical Examination Vital Signs Temp Pulse Resp BP Pulse Ox 98.1 F 84 18 149/77 95 01/25/19 15:36 01/25/19 15:36 01/25/19 15:36 01/25/19 15:36 01/25/19 15:36 General appearance: no acute distress HEENT: Positive: PERRL Neck: Positive: neck supple Cardiac: Positive: Reg Rate and Rhythm Lungs: Positive: Normal Exam Abdomen: Positive: Soft Extremities: Absent: edema Results 01/27/19 04:41 01/27/19 04:41 CBC 01/27/19 Range/Units 04:41 WBC 11.7 H (4.5-11.0) K/mm3 RBC 5.16 H (3.65-5.03) M/mm3 Hgb 14.8 H (10.1-14.3) gm/dl Hct 44.4 H (30.3-42.9) % Plt Count 245 (140-440) K/mm3 Lymph # 2.6 (1.2-5.4) K/mm3 Cameron # 0.8 (0.0-0.8) K/mm3 Eos # 0.1 (0.0-0.4) K/mm3 Baso # 0.0 (0.0-0.1) K/mm3 Comprehensive Metabolic Panel 01/27/19 Range/Units 04:41 Sodium 135 L (137-145) mmol/L Potassium 3.8 (3.6-5.0) mmol/L Chloride 102.2 (98-107) mmol/L Carbon Dioxide 21 L (22-30) mmol/L BUN 9 (7-17) mg/dL Creatinine 0.3 L (0.7-1.2) mg/dL Glucose 167 H (65-100) mg/dL Calcium 10.7 H (8.4-10.2) mg/dL - EKG Interpretation EKG: sinus rhythm EKG interpretations - Telemetry EKG Rhythm: Sinus Rhythm Assessment and Plan Acute CVA Right P2 occlusion on head CTA TTE this admission was normal Essential hypertension Type II DM Non-compliance Tele reviewed - no evidence of atrial fibrillation Recommendations: If YULISSA is needed, it can be performed either on wednesday or as outpatient in the case patient gets discharged over the weekend Continue to monitor on tele
--- NOTE | 2019-01-27 13:32 | Progress Note ---
Assessment and Plan Assessment and plan: 63-year-old -German female who is ongoing smoker history of hypertension and diabetes who presents to [facility] with complaints of right temporal headache, left hand numbness, left lower extremity weakness, patient gait, and left visual deficits for the past 2 days. CVA -CT Head showed Subacute nonhemorrhagic right posterior cerebral artery territory infarction. -MRI/ MRA Head - bilateral carotid Doppler, Echo unremarkable - CT head showed occlusion of P2 segment of right posterior cerebral artery -Neurology consult appreciated -Neurology recommended YULISSA and cardiology saw the patient and said on Wednesday -Telemetry neurology recommended not a candidate for TPA -PT/OT evaluation -Start ASA and statin. LDL is 112 Hypertensive urgency -BP is 184/103 -Hx Hypertension -Start the patient on amlodipine and HCTZ Headache -Likely secondary to hypertensive urgency and CVA -Continue supportive care - 10 control DM2 -HgbA1c is 9.3 -Continue metformin and scheduled insulin -SSI coverage prn Tobacco abuse -Current every day smoker -Counseled for cessation -Nicotine patch Leukocytosis -Likely reactive -No sign of infection, we will continue to monitor DVT PPX -on Lovenox Disposition; will finish w/u. Discussed with CM, patient is unfunded and her house has stairs. History Interval history: Patient was seen and evaluated this morning at the bedside Patient has left-sided weakness and neglect Hospitalist Physical - Physical exam Narrative exam: Not in cardiopulmonary distress. The patient is obese. Vital signs as documented. Head exam is unremarkable. No scleral icterus . Neck is without jugular venous distension, thyromegaly, or carotid bruits. Lungs are clear to auscultation. Cardiac exam reveals regular rate and Rhythm. Abdominal exam reveals normal bowel sounds. Extremities are nonedematous and both femoral and pedal pulses are normal. COAT PRESSER: Left-sided neglect with left-sided weakness prominent in the arm. - Constitutional Vitals: Temp Pulse Resp BP Pulse Ox 98.5 F 110 H 18 190/97 100 01/27/19 07:35 01/27/19 12:38 01/27/19 07:35 01/27/19 12:38 01/27/19 04:34 General appearance: Present: no acute distress Results - Labs CBC & Chem 7: 01/27/19 04:41 01/27/19 04:41 Labs: Laboratory Last Values WBC 11.7 K/mm3 (4.5-11.0) H 01/27/19 04:41 RBC 5.16 M/mm3 (3.65-5.03) H 01/27/19 04:41 Hgb 14.8 gm/dl (10.1-14.3) H 01/27/19 04:41 Hct 44.4 % (30.3-42.9) H 01/27/19 04:41 MCV 86 fl (79-97) 01/27/19 04:41 MCH 29 pg (28-32) 01/27/19 04:41 MCHC 33 % (30-34) 01/27/19 04:41 RDW 13.5 % (13.2-15.2) 01/27/19 04:41 Plt Count 245 K/mm3 (140-440) 01/27/19 04:41 Lymph % (Auto) 22.1 % (13.4-35.0) 01/27/19 04:41 Jess[place] % (Auto) 7.1 % (0.0-7.3) 01/27/19 04:41 Eos % (Auto) 0.6 % (0.0-4.3) 01/27/19 04:41 Baso % (Auto) 0.2 % (0.0-1.8) 01/27/19 04:41 Lymph # 2.6 K/mm3 (1.2-5.4) 01/27/19 04:41 Jessamine # 0.8 K/mm3 (0.0-0.8) 01/27/19 04:41 Eos # 0.1 K/mm3 (0.0-0.4) 01/27/19 04:41 Baso # 0.0 K/mm3 (0.0-0.1) 01/27/19 04:41 Seg Neutrophils % 70.0 % (40.0-70.0) 01/27/19 04:41 Seg Neutrophils # 8.2 K/mm3 (1.8-7.7) H 01/27/19 04:41 PT 13.0 Sec. (12.2-14.9) 01/25/19 19:22 INR 1.01 (0.87-1.13) 01/25/19 19:22 APTT 27.5 Sec. (24.2-36.6) 01/25/19 19:22 Sodium 135 mmol/L (137-145) L 01/27/19 04:41 Potassium 3.8 mmol/L (3.6-5.0) 01/27/19 04:41 Chloride 102.2 mmol/L (98-107) 01/27/19 04:41 Carbon Dioxide 21 mmol/L (22-30) L 01/27/19 04:41 Anion Gap 16 mmol/L 01/27/19 04:41 BUN 9 mg/dL (7-17) 01/27/19 04:41 Creatinine 0.3 mg/dL (0.7-1.2) L 01/27/19 04:41 Estimated GFR > 60 ml/min 01/27/19 04:41 BUN/Creatinine Ratio 30 % 01/27/19 04:41 Glucose 167 mg/dL (65-100) H 01/27/19 04:41 POC Glucose 171 (70-105) H 01/27/19 11:31 Hemoglobin A1c 9.3 % (4-6) H 01/26/19 05:02 Calcium 10.7 mg/dL (8.4-10.2) H 01/27/19 04:41 Total Bilirubin 0.60 mg/dL (0.1-1.2) 01/25/19 19:22 AST 9 units/L (5-40) 01/25/19 19:22 ALT 8 units/L (7-56) 01/25/19 19:22 Alkaline Phosphatase 114 units/L (35-129) 01/25/19 19:22 Troponin T < 0.010 ng/mL (0.00-0.029) 01/26/19 05:02 Total Protein 7.5 g/dL (6.3-8.2) 01/25/19 19:22 Albumin 4.0 g/dL (3.9-5) 01/25/19 19:22 Albumin/Globulin Ratio 1.1 % 01/25/19 19:22 Triglycerides 149 mg/dL (2-149) 01/26/19 05:02 Cholesterol 189 mg/dL (50-199) 01/26/19 05:02 LDL Cholesterol Direct 118 mg/dL (50-130) 01/26/19 05:02 HDL Cholesterol 53 mg/dL (40-59) 01/26/19 05:02 Cholesterol/HDL Ratio 3.56 % 01/26/19 05:02 Active Medications - Current Medications Current Medications: Generic Name Dose Route Start Last Admin Trade Name Freq PRN Reason Stop Dose Admin Acetaminophen 650 mg 01/25/19 20:25 Tylenol PO Q4H PRN Pain MILD(1-3)/Fever >100.5/PHILLIPS Aspirin 81 mg 01/26/19 10:00 01/27/19 09:35 Baby Aspirin PO 81 mg QDAY [place] Administration Atorvastatin Calcium 40 mg 01/25/19 22:00 01/26/19 21:48 Lipitor PO 40 mg QHS [place] Administration Bisacodyl 10 mg 01/25/19 20:18 Dulcolax MI QDAY PRN Constipation Dextrose 50 ml 01/25/19 20:25 D50w (25gm) Syringe IV PRN PRN Hypoglycemia Docusate Sodium 100 mg 01/25/19 22:00 01/27/19 09:33 Colace PO 100 mg BID [place] Administration Enoxaparin Sodium 40 mg 01/26/19 10:00 01/27/19 09:37 Lovenox SUB-Q 40 mg QDAY [place] Administration Hydralazine HCl 10 mg 01/25/19 20:28 01/27/19 12:38 Apresoline IV 10 mg Q4HR PRN Administration Blood Pressure Sodium Chloride 1,000 mls @ 75 mls/hr 01/25/19 21:00 01/25/19 23:11 Nacl 0.9% 1000 Ml IV 75 mls/hr DIRECT [place] Administration Insulin Human Isoph/Insulin Regular 15 unit 01/25/19 22:00 01/27/19 09:36 Humulin 70/30 SUB-Q 15 unit BID [place] Administration Insulin Human Lispro 0 unit 01/25/19 22:00 01/27/19 12:36 Humalog SUB-Q 2 unit ACHS [place] Administration Protocol Magnesium Hydroxide 30 ml 01/25/19 20:18 Milk Of Magnesia PO Q4H PRN Constipation Metformin HCl 1,000 mg 01/25/19 22:00 01/27/19 09:35 Glucophage PO 1,000 mg BIDDIAB [place] Administration Metoclopramide HCl 10 mg 01/25/19 20:18 Reglan PO Q6H PRN Nausea And Vomiting Nicotine 14 mg 01/26/19 10:00 01/27/19 09:35 Habitrol TD 14 mg QDAY [place] Administration Ondansetron HCl 4 mg 01/25/19 20:18 Zofran IV Q6H PRN Nausea And Vomiting Oxycodone/Acetaminophen 1 tab 01/25/19 20:18 01/26/19 17:27 Percocet 5/325 PO 1 tab Q6H PRN Administration Pain, Moderate (4-6) Sodium Chloride 10 ml 01/25/19 20:18 Sodium Chloride Flush Syringe 10 Ml IV PRN PRN LINE FLUSH Nutrition/Malnutrition Assess - Dietary Evaluation Nutrition/Malnutrition Findings: Nutrition Notes Start: 01/26/19 10:50 Freq: Status: Active Protocol: Document 01/26/19 10:50 PS (Rec: 01/26/19 11:41 PS [id number]) Co-Sign 01/26/19 10:50 LM Nutrition Notes Need for Assessment generated from: MD Order,Education Initial or Follow up Assessment Current Diagnosis Diabetes,Hypertension Current Diet Cardiac Consistent Carbohyrdate Diet Labs/Tests Creat. 0.4 Glu 157 A1C 9.3 Ca 10.5 Pertinent Medications Reviewed Height 5 ft 5 in Weight 83.7 kg [place] Body Weight (kg) 56.81 BMI 30.7 Intake Prior to Admission Fair Weight Status Obese Subjective/Other Information Consult for diet education. Pt . was eating about 50% of her normal diet starting Wednesday MEDIA ASSISTANT due to lack of appetite. Pt. had appetite and was hungry for breakfast at hospital but did not like food . A cereal alternative was given to pt to eat. Pt. stated she was taking her medications at home and was open to taking the Carb counting with diabetes handout . Burn Absent Trauma Absent Minimum of two criteria No physical signs of malnutrition #2 Nutrition Diagnosis Food and nutrition-related knowledge deficit Etiology inadequate carbohydrate counting/diabetes education As Evidenced by Signs and Symptoms A1C of 9.3% and pt. not showing interest after asking if had prior education on diabetes #1 Nutrition Diagnosis Inadequate oral intake Etiology lack of appetite As Evidenced by Signs and Symptoms pt. stating she has been eating about 50% of her normal diet for 4 days. Is patient on ventilator? No Is Patient Ambulatory and/or Out of Bed Yes REE-(Gooding-St. Jeor-ambulatory/OOB) [ 2130.744 NUTR.MSJOOB] Kcal/Kg value to use for calculation 16 Approximate Energy Requirements Using 1339 kcal/Kg Calculation Used for Recommendations Kcal/kg Additional Notes Pro: 70-84 g (1-1.2 g/kg AdBW) Fluids: 1 ml/kcal Nutrition Intervention Change Diet Order: Continue Cardiac Consistent Carbohydrate Diet Teaching Recipient Patient,Family Learning Readiness Good Teaching Methods Discussion,Handout Response to Teaching Verbalize understanding Education Handouts Provided Carb Counting for Diabetes Barriers to Learning No Barriers RD phone number provided Yes Patient aware of follow up options Yes Goal #1 Meet 80% of energy/protein needs Anticipated Discharge Needs: Cardiac Consistent Carbohydrate Diet Follow-Up By: 01/31/19 Additional Comments Follow up for PO intakes
[2019-01-27] MEDS ORDERED: ATIVAN IV NR (14:00)
[2019-01-27] MEDS: HCTZ PO SCH (14:30)
--- NOTE | 2019-01-27 15:02 | XRay Report ---
CHEST 1 VIEW INDICATION: leucocytosis. COMPARISON: None FINDINGS: Support devices: None. Heart: Mild cardiomegaly Lungs/Pleura: No acute air space or interstitial disease. Mild central pulmonary venous congestion is evident. No pleural effusion or pneumothorax. Additional findings: None. IMPRESSION: Mild cardiomegaly and central pulmonary venous congestion. No evidence for pneumonia. Signer Name: Corey Shields Jr, MD Signed: 01/27/2019 2:57 PM Workstation Name: [id number]
--- NOTE | 2019-01-27 15:23 | Magnetic Resonance Report ---
MRI BRAIN WITHOUT CONTRAST INDICATION / CLINICAL INFORMATION: stroke. TECHNIQUE: Multiplanar, multisequence MR images of the brain were obtained. COMPARISON: The study is compared to the earlier CT of 01/25/2019. FINDINGS: BRAIN / INTRACRANIAL CONTENTS: There is a large acute right HAND BUFFER infarct which are includes the right occipital and posterior medial temporal lobes at. Furthermore, the findings extend to involve the pos terior right thalamus at. On the FLAIR sequences, there is otherwise extensive cerebral and pontine w maverick matter disease most consistent with microvascular angiopathy. The diffusion imaging reveals no f urther evidence of acute infarction. There is mild mass effect with sulcal effacement involving the acute infarct at. This mild mass effec t upon the posterior right lateral ventricle. Otherwise, the ventricular system is within normal limi ts in size and configuration. CRANIOCERVICAL JUNCTION: No significant abnormality. VASCULAR FLOW-VOIDS: The MR a head will be dictated separately. ORBITS: There appears be a small focal defect involving medial right orbital wall which may be develo pmental or related to previous trauma. SINUSES / MASTOIDS: There are extensive inflammatory changes within the mastoid air cells, greater on the right. The paranasal sinuses are pneumatized. ADDITIONAL FINDINGS: None. IMPRESSION: 1. There is a large acute right HAND BUFFER infarct as detailed above. 2. There is otherwise extensive chronic microvascular angiopathy. 3. There are extensive inflammatory changes within the mastoid air cells bilaterally. Signer Name: Nabil No MD Signed: 01/27/2019 3:19 PM Workstation Name: [id number]
--- NOTE | 2019-01-27 15:27 | Magnetic Resonance Report ---
MRA head without contrast CLINICAL HISTORY: Cerebrovascular accident. FINDINGS: No previous exams are available for comparison. The motion significantly degrades the image quality. There is absence of signal within the right IMMUNOPATHOLOGIST compatible with occlusion given the develop ing large right IMMUNOPATHOLOGIST infarct on the copy MRI. The left IMMUNOPATHOLOGIST is unremarkable. There is irregularity of the right MCA with significant focal stenosis involving the M1 segment which may be exacerbated by the degree of motion. However, the findings would be indicative of atheroscler otic disease at. There is milder irregularity involving the more distal branches. There may also be a mild atherosclerotic disease involving the internal carotid arteries. However, there is no significa nt focal narrowing. IMPRESSION: There is absence of signal within the right IMMUNOPATHOLOGIST compatible with occlusion as detailed above. The motion degrades the image quality. However, there appears to be significant stenosis involving th e M1 segment of the right MCA as described. Signer Name: Nabil No MD Signed: 01/27/2019 3:22 PM Workstation Name: [id number]
--- NOTE | 2019-01-27 16:37 | Progress Note ---
Assessment and Plan nadia is a 63 y/o woman w/ a h/o HTN, DM, obesity, who p/w left sided weakness, left visual field deficits. According to the patient's clinical findings, she has had an acute ischemic stroke, as is evidenced on imaging. Plan: 1. Stroke: - CT head showed Rt. FLOWERS SALESPERSON territory stroke - MRI shows RT. FLOWERS SALESPERSON territory stroke. - CTA head/neck showed Rt. FLOWERS SALESPERSON occlusion, otherwise no significant stenosis. - CUS: no significant stenosis - Echo: EF 60-65%, LA normal size, bubble study negative - Cont. ASA 81mg daily - Cont. statin. Current LDL 118. Goal LDL < 70. - HbA1C 9.3 - PT/OT/ST - DVT Ppx: recommend lovenox - Check UA, as patient has elevated WBC- Pending - Recommend checking YULISSA, due to leukocytosis, to rule out endocarditis, with cryptogenic stroke. - Telemetry monitoring while in house. -Recommend cardiology consult for YULISSA, and to rule out possible Afib on telemetry. 2. Hypertension: - Recommend target BP of normotension, as it has been >48 hours since symptom onset. -Will sign off as I'm not covering the neurology service over the weekend. Please consult neurologist who is covering neurology service over the weekend for further neurologic monitoring and management. Thank you for allowing me to take part in the care of this patient. Waylon Hoang MD Neurology Subjective Date of service: 01/27/19 Principal diagnosis: Stroke Interval history: No acute events overnight. Objective - Exam Narrative Exam: Patient is alert, awake, Oriented X4, follows complex commands. No dysarhtria or aphasia noted. PERRL, EOMI, noted to have Lt. HH, no facial weakness noted, b/l intact to LT, tongue midline. RUE/RLE: 5/5, LUE/LLE: 4/5. noted to have sensory neglect on the LUE/LLE. 2+ reflexxes throughout. B/l intact to FTN and HTS. - Vital Sign Vital Signs - 12hr 01/27/19 01/27/19 01/27/19 04:34 07:35 09:31 Temperature 97.9 F 98.5 F Pulse Rate 100 H 54 L Pulse Rate [ Apical] Pulse Rate [ Left Dorsalis Pedis] Pulse Rate [ Left Radial] Pulse Rate [ Right Dorsalis Pedis] Pulse Rate [ Right Radial] Respiratory 16 18 Rate Blood Pressure 179/97 186/95 161/99 O2 Sat by Pulse 100 Oximetry 01/27/19 01/27/19 10:00 12:38 Temperature Pulse Rate 53 L 110 H Pulse Rate [ 100 H Apical] Pulse Rate [ 100 H Left Dorsalis Pedis] Pulse Rate [ 100 H Left Radial] Pulse Rate [ 100 H Right Dorsalis Pedis] Pulse Rate [ 100 H Right Radial] Respiratory 19 Rate Blood Pressure 190/97 O2 Sat by Pulse 98 Oximetry - General Apperance Constitutional: comfortable - EENT EENT: ATNC, PERRL, mucous membranes moist, hearing intact - Respiratory Respiratory: lungs clear, normal breath sounds - Cardiovascular Cardiovascular: regular rate, normal S1, normal S2 Extremities: no clubbing, cyanosis, no inflammation - Gastrointestinal Gastrointestinal: normoactive bowel sounds, soft, non-tender - Integumentary Integumentary: normal - Musculoskeletal Musculoskeletal: no fluid collection, no pain - Psychiatric Psychiatric: mood/affect appropriate - Laboratory Findings CBC and BMP: 01/27/19 04:41 01/27/19 04:41 Abnormal Lab Findings: Abnormal Labs 01/25/19 01/25/19 01/25/19 19:22 19:22 22:20 WBC 11.1 H RBC 5.11 H Hgb 14.4 H Hct 44.5 H [place] % (Auto) [place] # Seg Neutrophils # Sodium Carbon Dioxide Creatinine 0.5 L Glucose 183 H POC Glucose 188 H Hemoglobin A1c Calcium 10.6 H 01/26/19 01/26/19 01/26/19 05:02 05:02 05:02 WBC 11.8 H RBC Hgb Hct [place] % (Auto) 8.3 H [place] # 1.0 H Seg Neutrophils # Sodium Carbon Dioxide Creatinine 0.4 L Glucose 157 H POC Glucose Hemoglobin A1c 9.3 H Calcium 10.5 H 01/26/19 01/26/19 01/26/19 10:24 12:13 16:35 WBC RBC Hgb Hct [place] % (Auto) [place] # Seg Neutrophils # Sodium Carbon Dioxide Creatinine Glucose POC Glucose 204 H 175 H 136 H Hemoglobin A1c Calcium 01/26/19 01/27/19 01/27/19 20:49 04:41 04:41 WBC 11.7 H RBC 5.16 H Hgb 14.8 H Hct 44.4 H [place] % (Auto) [place] # Seg Neutrophils # 8.2 H Sodium 135 L Carbon Dioxide 21 L Creatinine 0.3 L Glucose 167 H POC Glucose 183 H Hemoglobin A1c Calcium 10.7 H 01/27/19 01/27/19 07:41 11:31 WBC RBC Hgb Hct [place] % (Auto) [place] # Seg Neutrophils # Sodium Carbon Dioxide Creatinine Glucose POC Glucose 160 H 171 H Hemoglobin A1c Calcium
[2019-01-27] MEDS: PERCOCET 5/325 PO PRN (22:22)
[2019-01-27] MEDS: MELATONIN PO PRN (23:08)
[2019-01-28 00:31] LABS: Bilirubin,Urine NEG (Negative); Blood,Urine NEG (Negative); Color,Urine Yellow (Yellow); Urobilinogen,Urine < 2.0 mg/dL (<2.0)
[2019-01-28] MEDS: PERCOCET 5/325 PO PRN ×4 (05:36→22:10)
[2019-01-28 07:17] LABS: Basophils % (Auto) 0.4 % (0.0-1.8); Eosinophils # (Auto) 0.1 K/mm3 (0.0-0.4); Eosinophils % (Auto) 1.1 % (0.0-4.3); Hematocrit 45.4 % (30.3-42.9); Hemoglobin 15.1 gm/dl (10.1-14.3); Lymphocytes # (Auto) 2.9 K/mm3 (1.2-5.4); Mean Corpuscular HGB Conc 33 % (30-34); Mean Corpuscular Volume 86 fl (79-97); Monocytes # (Auto) 0.9 K/mm3 (0.0-0.8); Monocytes % (Auto) 8.3 % (0.0-7.3); Platelet Count 258 K/mm3 (140-440); Red Blood Count 5.25 M/mm3 (3.65-5.03); Red Cell Distribution Width 13.4 % (13.2-15.2)
[2019-01-28 07:30] LABS: BUN/Creatinine Ratio 26; Blood Urea Nitrogen 13 mg/dL (7-17); Calcium 11.7 mg/dL (8.4-10.2); Hemolysis Index 0
[2019-01-28] MEDS: HumaLOG SUB-Q SCH ×4 (07:30→21:56)
[2019-01-28] MEDS: HCTZ PO SCH (10:40)
[2019-01-28] MEDS: GLUCOPHAGE PO SCH ×2 (10:40→16:24)
[2019-01-28] MEDS: BABY ASPIRIN PO SCH (10:40)
[2019-01-28] MEDS: HABITROL TD SCH (10:40)
[2019-01-28] MEDS: COLACE PO SCH ×2 (10:40→21:56)
[2019-01-28] MEDS: ENOXAPARIN SUB-Q SCH (10:41)
--- NOTE | 2019-01-28 10:55 | Progress Note ---
Assessment and Plan Acute CVA Right P2 occlusion on head CTA TTE this admission was normal Essential hypertension Type II DM Non-compliance Tele reviewed - no evidence of atrial fibrillation Recommendations: Continue same neurology recommends YULISSA for endocarditis with cryptogenic stroke ( low probablity ) If YULISSA is needed, it can be performed idealy wednesday or as outpatient in the case patient gets discharged over the weekend Continue to monitor on tele Subjective Date of service: 01/28/19 Principal diagnosis: Stroke Interval history: No events overnight Objective Vital Signs Temp Pulse Resp Resp BP Pulse Ox 01/28/19 10:40 92 H 144/80 01/28/19 07:50 97.5 F L 18 159/78 01/28/19 06:36 18 01/28/19 05:36 18 01/28/19 04:19 98.5 F 93 H 28 H 144/81 92 01/27/19 23:22 20 01/27/19 23:11 98.6 F 109 H 20 171/92 96 01/27/19 22:22 18 20 01/27/19 20:30 20 98 01/27/19 19:52 97.8 F 109 H 24 159/77 98 01/27/19 19:47 105 H 01/27/19 17:03 89 212/105 01/27/19 17:01 89 186/95 01/27/19 12:38 110 H 190/97 01/27/19 12:34 111 H 97 - Physical Examination Narrative exam: General appearance: no acute distress HEENT: Normocephalic Neck: Carotids 2+ Cardiac: S1 and S2 heard no murmur noted Lungs: normal breath sounds Abd: soft Neuro: Grossly Intact Extremities: No edema noted HEENT: Positive: PERRL Neck: Positive: neck supple Abdomen: Positive: Soft Extremities: Absent: edema - Labs and Meds CBC 01/28/19 Range/Units 06:33 WBC 10.6 (4.5-11.0) K/mm3 RBC 5.25 H (3.65-5.03) M/mm3 Hgb 15.1 H (10.1-14.3) gm/dl Hct 45.4 H (30.3-42.9) % Plt Count 258 (140-440) K/mm3 Lymph # 2.9 (1.2-5.4) K/mm3 [place] # 0.9 H (0.0-0.8) K/mm3 Eos # 0.1 (0.0-0.4) K/mm3 Baso # 0.0 (0.0-0.1) K/mm3 Comprehensive Metabolic Panel 01/28/19 Range/Units 06:33 Sodium 137 (137-145) mmol/L Potassium 3.9 (3.6-5.0) mmol/L Chloride 100.7 (98-107) mmol/L Carbon Dioxide 22 (22-30) mmol/L BUN 13 (7-17) mg/dL Creatinine 0.5 L D (0.7-1.2) mg/dL Glucose 174 H (65-100) mg/dL Calcium 11.7 H (8.4-10.2) mg/dL
[2019-01-28] MEDS: MELATONIN PO PRN (22:02)
--- NOTE | 2019-01-28 22:31 | Progress Note ---
Assessment and Plan Assessment and plan: 63-year-old -Pakistani female who is ongoing smoker history of hypertension and diabetes who presents to [facility] ED with complaints of right temporal headache, left hand numbness, left lower extremity weakness, patient gait, and left visual deficits for the past 2 days. CVA -CT Head showed Subacute nonhemorrhagic right posterior cerebral artery territory infarction. -MRI/ MRA Head - bilateral carotid Doppler, Echo unremarkable - CT head showed occlusion of P2 segment of right posterior cerebral artery -Neurology consult appreciated -Neurology recommended YULISSA and cardiology saw the patient and said on Wednesday -Telemetry neurology recommended not a candidate for TPA -PT/OT evaluation -Start ASA and statin. LDL is 112 Hypertensive urgency -BP is 184/103 -Hx Hypertension -Start the patient on amlodipine and HCTZ Headache -Likely secondary to hypertensive urgency and CVA -Continue supportive care - 10 control DM2 -HgbA1c is 9.3 -Continue metformin and scheduled insulin -SSI coverage prn Tobacco abuse -Current every day smoker -Counseled for cessation -Nicotine patch Leukocytosis -Likely reactive -No sign of infection, we will continue to monitor DVT PPX -on Lovenox Disposition; will finish w/u. Discussed with CM, patient is unfunded and her house has stairs. History Interval history: Patient was seen and evaluated this morning at the bedside Patient has left-sided weakness and neglect Hospitalist Physical - Physical exam Narrative exam: Not in cardiopulmonary distress. The patient is obese. Vital signs as documented. Head exam is unremarkable. No scleral icterus . Neck is without jugular venous distension, thyromegaly, or carotid bruits. Lungs are clear to auscultation. Cardiac exam reveals regular rate and Rhythm. Abdominal exam reveals normal bowel sounds. Extremities are nonedematous and both femoral and pedal pulses are normal. 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 - Constitutional Vitals: Temp Pulse Resp BP Pulse Ox 98.6 F 99 H 16 146/75 97 01/28/19 20:03 01/28/19 20:03 01/28/19 22:10 01/28/19 20:03 01/28/19 20:03 General appearance: Present: no acute distress Results - Labs CBC & Chem 7: 01/28/19 06:33 01/28/19 06:33 Labs: Laboratory Last Values WBC 10.6 K/mm3 (4.5-11.0) 01/28/19 06:33 RBC 5.25 M/mm3 (3.65-5.03) H 01/28/19 06:33 Hgb 15.1 gm/dl (10.1-14.3) H 01/28/19 06:33 Hct 45.4 % (30.3-42.9) H 01/28/19 06:33 MCV 86 fl (79-97) 01/28/19 06:33 MCH 29 pg (28-32) 01/28/19 06:33 MCHC 33 % (30-34) 01/28/19 06:33 RDW 13.4 % (13.2-15.2) 01/28/19 06:33 Plt Count 258 K/mm3 (140-440) 01/28/19 06:33 Lymph % (Auto) 27.0 % (13.4-35.0) 01/28/19 06:33 [place] % (Auto) 8.3 % (0.0-7.3) H 01/28/19 06:33 Eos % (Auto) 1.1 % (0.0-4.3) 01/28/19 06:33 Baso % (Auto) 0.4 % (0.0-1.8) 01/28/19 06:33 Lymph # 2.9 K/mm3 (1.2-5.4) 01/28/19 06:33 [place] # 0.9 K/mm3 (0.0-0.8) H 01/28/19 06:33 Eos # 0.1 K/mm3 (0.0-0.4) 01/28/19 06:33 Baso # 0.0 K/mm3 (0.0-0.1) 01/28/19 06:33 Seg Neutrophils % 63.2 % (40.0-70.0) 01/28/19 06:33 Seg Neutrophils # 6.7 K/mm3 (1.8-7.7) 01/28/19 06:33 PT 13.0 Sec. (12.2-14.9) 01/25/19 19:22 INR 1.01 (0.87-1.13) 01/25/19 19:22 APTT 27.5 Sec. (24.2-36.6) 01/25/19 19:22 Sodium 137 mmol/L (137-145) 01/28/19 06:33 Potassium 3.9 mmol/L (3.6-5.0) 01/28/19 06:33 Chloride 100.7 mmol/L (98-107) 01/28/19 06:33 Carbon Dioxide 22 mmol/L (22-30) 01/28/19 06:33 Anion Gap 18 mmol/L 01/28/19 06:33 BUN 13 mg/dL (7-17) 01/28/19 06:33 Creatinine 0.5 mg/dL (0.7-1.2) L D 01/28/19 06:33 Estimated GFR > 60 ml/min 01/28/19 06:33 BUN/Creatinine Ratio 26 % 01/28/19 06:33 Glucose 174 mg/dL (65-100) H 01/28/19 06:33 POC Glucose 154 (70-105) H 01/28/19 21:16 Hemoglobin A1c 9.3 % (4-6) H 01/26/19 05:02 Calcium 11.7 mg/dL (8.4-10.2) H 01/28/19 06:33 Total Bilirubin 0.60 mg/dL (0.1-1.2) 01/25/19 19:22 AST 9 units/L (5-40) 01/25/19 19:22 ALT 8 units/L (7-56) 01/25/19 19:22 Alkaline Phosphatase 114 units/L (35-129) 01/25/19 19:22 Troponin T < 0.010 ng/mL (0.00-0.029) 01/26/19 05:02 Total Protein 7.5 g/dL (6.3-8.2) 01/25/19 19:22 Albumin 4.0 g/dL (3.9-5) 01/25/19 19:22 Albumin/Globulin Ratio 1.1 % 01/25/19 19:22 Triglycerides 149 mg/dL (2-149) 01/26/19 05:02 Cholesterol 189 mg/dL (50-199) 01/26/19 05:02 LDL Cholesterol Direct 118 mg/dL (50-130) 01/26/19 05:02 HDL Cholesterol 53 mg/dL (40-59) 01/26/19 05:02 Cholesterol/HDL Ratio 3.56 % 01/26/19 05:02 Urine Color Yellow (Yellow) 01/27/19 23:08 Urine Turbidity Clear (Clear) 01/27/19 23:08 Urine pH 5.0 (5.0-7.0) 01/27/19 23:08 Ur Specific [place] 1.031 (1.003-1.030) H 01/27/19 23:08 Urine Protein 30 mg/dl mg/dL (Negative) 01/27/19 23:08 Urine Glucose (UA) 150 mg/dL (Negative) 01/27/19 23:08 Urine Ketones 80 mg/dL (Negative) 01/27/19 23:08 Urine Blood Neg (Negative) 01/27/19 23:08 Urine Nitrite Neg (Negative) 01/27/19 23:08 Urine Bilirubin Neg (Negative) 01/27/19 23:08 Urine Urobilinogen < 2.0 mg/dL (<2.0) 01/27/19 23:08 Ur Leukocyte Esterase Neg (Negative) 01/27/19 23:08 Urine WBC (Auto) 1.0 /HPF (0.0-6.0) 01/27/19 23:08 Urine RBC (Auto) 3.0 /HPF (0.0-6.0) 01/27/19 23:08 U Epithel Cells (Auto) < 1.0 /HPF (0-13.0) 01/27/19 23:08 Active Medications - Current Medications Current Medications: Generic Name Dose Route Start Last Admin Trade Name Freq PRN Reason Stop Dose Admin Acetaminophen 650 mg 01/25/19 20:25 Tylenol PO Q4H PRN Pain MILD(1-3)/Fever >100.5/PHILLIPS Amlodipine Besylate 10 mg 01/27/19 14:00 01/28/19 10:40 Norvasc PO 10 mg QDAY [place] Administration Aspirin 81 mg 01/26/19 10:00 01/28/19 10:40 Baby Aspirin PO 81 mg QDAY [place] Administration Atorvastatin Calcium 40 mg 01/25/19 22:00 01/28/19 21:56 Lipitor PO 40 mg QHS [place] Administration Bisacodyl 10 mg 01/25/19 20:18 Dulcolax RI QDAY PRN Constipation Dextrose 50 ml 01/25/19 20:25 D50w (25gm) Syringe IV PRN PRN Hypoglycemia Docusate Sodium 100 mg 01/25/19 22:00 01/28/19 21:56 Colace PO 100 mg BID [place] Administration Enoxaparin Sodium 40 mg 01/26/19 10:00 01/28/19 10:41 Lovenox SUB-Q 40 mg QDAY [place] Administration Hydralazine HCl 10 mg 01/25/19 20:28 01/27/19 17:03 Apresoline IV 10 mg Q4HR PRN Administration Blood Pressure Hydrochlorothiazide 25 mg 01/27/19 14:00 01/28/19 10:40 Hctz PO 25 mg QDAY [place] Administration Sodium Chloride 1,000 mls @ 75 mls/hr 01/25/19 21:00 01/25/19 23:11 Nacl 0.9% 1000 Ml IV 75 mls/hr DIRECT [place] Administration Insulin Human Isoph/Insulin Regular 15 unit 01/25/19 22:00 01/28/19 21:57 Humulin 70/30 SUB-Q 15 unit BID [place] Administration Insulin Human Lispro 0 unit 01/25/19 22:00 01/28/19 21:56 Humalog SUB-Q 2 unit ACHS [place] Administration Protocol Magnesium Hydroxide 30 ml 01/25/19 20:18 Milk Of Magnesia PO Q4H PRN Constipation Melatonin 5 mg 01/27/19 22:48 01/28/19 22:02 Melatonin PO 5 mg QHS PRN Administration Sleep Metformin HCl 1,000 mg 01/25/19 22:00 01/28/19 16:24 Glucophage PO 1,000 mg BIDDIAB [place] Administration Metoclopramide HCl 10 mg 01/25/19 20:18 Reglan PO Q6H PRN Nausea And Vomiting Nicotine 14 mg 01/26/19 10:00 01/28/19 10:40 Habitrol TD 14 mg QDAY [place] Administration Ondansetron HCl 4 mg 01/25/19 20:18 Zofran IV Q6H PRN Nausea And Vomiting Oxycodone/Acetaminophen 1 tab 01/25/19 20:18 01/28/19 22:10 Percocet 5/325 PO 1 tab Q6H PRN Administration Pain, Moderate (4-6) Sodium Chloride 10 ml 01/25/19 20:18 Sodium Chloride Flush Syringe 10 Ml IV PRN PRN LINE FLUSH Nutrition/Malnutrition Assess - Dietary Evaluation Nutrition/Malnutrition Findings: Nutrition Notes Start: 01/26/19 10:50 Freq: Status: Active Protocol: Document 01/26/19 10:50 PS (Rec: 01/26/19 11:41 PS [id number]) Co-Sign 01/26/19 10:50 LM Nutrition Notes Need for Assessment generated from: MD Order,Education Initial or Follow up Assessment Current Diagnosis Diabetes,Hypertension Current Diet Cardiac Consistent Carbohyrdate Diet Labs/Tests Creat. 0.4 Glu 157 A1C 9.3 Ca 10.5 Pertinent Medications Reviewed Height 5 ft 5 in Weight 83.7 kg [place] Body Weight (kg) 56.81 BMI 30.7 Intake Prior to Admission Fair Weight Status Obese Subjective/Other Information Consult for diet education. 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 Pt. had appetite and was hungry for breakfast at hospital but did not like food . A cereal alternative was given to pt to eat. Pt. stated she was taking her medications at home and was open to taking the Carb counting with diabetes handout . Burn Absent Trauma Absent Minimum of two criteria No physical signs of malnutrition #2 Nutrition Diagnosis Food and nutrition-related knowledge deficit Etiology inadequate carbohydrate counting/diabetes education As Evidenced by Signs and Symptoms A1C of 9.3% and pt. not showing interest after asking if had prior education on diabetes #1 Nutrition Diagnosis Inadequate oral intake Etiology lack of appetite As Evidenced by Signs and Symptoms pt. stating she has been eating about 50% of her normal diet for 4 days. Is patient on ventilator? No Is Patient Ambulatory and/or Out of Bed Yes REE-([facility]-ambulatory/OOB) [ 1810.744 [id number]] Kcal/Kg value to use for calculation 16 Approximate Energy Requirements Using 1339 kcal/Kg Calculation Used for Recommendations Kcal/kg Additional Notes Pro: 70-84 g (1-1.2 g/kg AdBW) Fluids: 1 ml/kcal Nutrition Intervention Change Diet Order: Continue Cardiac Consistent Carbohydrate Diet Teaching Recipient Patient,Family Learning Readiness Good Teaching Methods Discussion,Handout Response to Teaching Verbalize understanding Education Handouts Provided Carb Counting for Diabetes Barriers to Learning No Barriers RD phone number provided Yes Patient aware of follow up options Yes Goal #1 Meet 80% of energy/protein needs Anticipated Discharge Needs: Cardiac Consistent Carbohydrate Diet Follow-Up By: 01/31/19 Additional Comments Follow up for PO intakes
[2019-01-29] MEDS: PERCOCET 5/325 PO PRN (03:55)
[2019-01-29] MEDS: GLUCOPHAGE PO SCH ×2 (08:11→17:33)
[2019-01-29] MEDS: HumaLOG SUB-Q SCH ×4 (08:11→21:27)
[2019-01-29] MEDS: HABITROL TD SCH (09:48)
[2019-01-29] MEDS: BABY ASPIRIN PO SCH (09:48)
[2019-01-29] MEDS: HCTZ PO SCH (09:49)
[2019-01-29] MEDS: ENOXAPARIN SUB-Q SCH (09:49)
[2019-01-29] MEDS: COLACE PO SCH ×2 (09:49→21:28)
--- NOTE | 2019-01-29 11:59 | Progress Note ---
Assessment and Plan Acute CVA Right P2 occlusion on head CTA TTE this admission was normal Essential hypertension Type II DM Non-compliance Tele reviewed - no evidence of atrial fibrillation Recommendations: Continue same neurology recommends YULISSA for endocarditis with cryptogenic stroke ( low probablity ) YULISSA tomorrow afternoon by Dr. Sumeet Velasquez strict NPO after midnight Subjective Date of service: 01/29/19 Principal diagnosis: Stroke Interval history: No events overnight Objective Vital Signs Temp Pulse Resp BP Pulse Ox 01/29/19 09:48 102 H 143/87 01/29/19 03:55 16 01/29/19 00:04 104 H 01/28/19 23:56 97 H 01/28/19 23:24 98.0 F 107 H 18 140/76 96 01/28/19 23:10 16 01/28/19 22:10 16 01/28/19 20:03 98.6 F 99 H 20 146/75 97 01/28/19 17:33 98.4 F 18 137/94 01/28/19 17:28 20 01/28/19 16:28 20 - Physical Examination Narrative exam: General appearance: no acute distress HEENT: Normocephalic Neck: Carotids 2+ Cardiac: S1 and S2 heard no murmur noted Lungs: normal breath sounds Abd: soft Neuro: Grossly Intact Extremities: No edema noted HEENT: Positive: PERRL Neck: Positive: neck supple Abdomen: Positive: Soft Extremities: Absent: edema
--- NOTE | 2019-01-29 14:54 | Progress Note ---
Assessment and Plan Acute CVA -Telemetry neurology recommended not a candidate for TPA -CT Head showed Subacute nonhemorrhagic right posterior cerebral artery territory infarction. 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 LDL is 112 Hypertensive urgency -BP is 184/103 -Hx Hypertension -Started the patient on amlodipine and HCTZ - adjust medications as needed Headache -Likely secondary to hypertensive urgency and CVA -Continue supportive care DM2 -HgbA1c is 9.3 -Continue metformin and scheduled insulin -SSI coverage prn Tobacco abuse -Current every day smoker -Counseled for cessation -Nicotine patch Leukocytosis -Likely reactive -No sign of infection, we will continue to monitor DVT PPX -on Lovenox Disposition; will finish w/u. Discussed with CM, patient is unfunded and her house has stairs. Brief History 63-year-old -[place] female who is ongoing smoker history of hypertension and diabetes who presents to [facility] ED with complaints of right temporal headache, left hand numbness, left lower extremity weakness, patient gait, and left visual deficits for the past 2 days. Hospitalist Physical GENERAL: well-developed and well-nourished elderly -[place] female lying on bed appeared to be in no discomfort. HEENT: Normocephalic. Atraumatic. No conjunctival congestion or icterus. Patient has moist mucous membranes. NECK: Supple. Trachea midline. CHEST/LUNGS: Clear to auscultated bilaterally, breathing nonlabored. No wheezes crackles or rhonchi. HEART/CARDIOVASCULAR: Regular in rate and rhythm. S1 and S2 positive. ABDOMEN: Abdomen is soft, nontender. Patient has normal bowel sounds. SKIN: There is no rash. Warm and dry. NEURO: Left-sided weakness and neglect. Follows command. MUSCULOSKELETAL: No joint effusion or tenderness. EXTRIMITY: No edema, no cyanosis or clubbing. PSYCH: Cooperative. Subjective Date of service: 01/29/19 Principal diagnosis: Stroke Interval history: Patient seen and examined. Medical records and medication list reviewed. No acute event overnight noted by the RN. Patient denies any chest pain or difficulty breathing. Patient is tolerating diet. Discussed plan of care at bedside with patient and her daughter. Objective - Constitutional Vitals: Vital Signs - 12hr 01/29/19 01/29/19 01/29/19 03:55 09:48 10:00 Temperature Pulse Rate 102 H 95 H Pulse Rate [ 102 H Apical] Pulse Rate [ 102 H Left Dorsalis Pedis] Pulse Rate [ 102 H Left Radial] Pulse Rate [ 102 H Right Dorsalis Pedis] Pulse Rate [ 102 H Right Radial] Respiratory 16 19 Rate Blood Pressure 143/87 Blood Pressure [Left] O2 Sat by Pulse 99 Oximetry 01/29/19 12:00 Temperature 98 F Pulse Rate 97 H Pulse Rate [ Apical] Pulse Rate [ Left Dorsalis Pedis] Pulse Rate [ Left Radial] Pulse Rate [ Right Dorsalis Pedis] Pulse Rate [ Right Radial] Respiratory 18 Rate Blood Pressure Blood Pressure 127/66 [Left] O2 Sat by Pulse 98 Oximetry - Labs CBC & Chem 7: 01/28/19 06:33 01/28/19 06:33 Labs: Abnormal lab results 01/28/19 01/28/19 01/29/19 Range/Units 17:37 21:16 07:52 POC Glucose 129 H 154 H 127 H (70-105) 01/29/19 Range/Units 11:23 POC Glucose 174 H (70-105)
[2019-01-29] MEDS: MELATONIN PO PRN (23:54)
[2019-01-30] MEDS: PERCOCET 5/325 PO PRN (03:23)
[2019-01-30] MEDS: HumaLOG SUB-Q SCH ×4 (08:28→21:36)
[2019-01-30] MEDS: GLUCOPHAGE PO SCH ×2 (08:28→17:58)
--- NOTE | 2019-01-30 10:14 | Anesthesia Consultation ---
Anesthesia Consult and Med Hx Date of service: 01/30/19 - Airway Anesthetic Teeth Evaluation: Poor (multiple missing teeth) ROM Head & Neck: Adequate Mental/Hyoid Distance: Adequate Mallampati Class: Class III Intubation Access Assessment: Possibly Difficult - Pre-Operative Health Status ASA Pre-Surgery Classification: ASA3 Proposed Anesthetic Plan: MAC - Pulmonary Hx Smoking: Yes (current smoker) - Cardiovascular System Hx Hypertension: Yes - Central Nervous System CVA: Yes (right non-hemorrhagic strike with left hemiparesis) - Endocrine Hx Non-Insulin Dependent Diabetes: Yes - Other Systems Hx Obesity: Yes (BMI 31.4)
--- NOTE | 2019-01-30 10:18 | Anesthesia Day of Surgery ---
Anesthesia Day of Surgery - Day of Surgery Patient Examined: Yes Patient H&P Reviewed: Yes Patient is NPO: Yes
[2019-01-30] MEDS ORDERED: HURRICAINE ONE 20% TOPICAL SPRAY MM (12:26)
[2019-01-30] MEDS: HABITROL TD SCH (12:30)
[2019-01-30] MEDS: HCTZ PO SCH (12:30)
[2019-01-30] MEDS: COLACE PO SCH ×2 (12:30→21:35)
[2019-01-30] MEDS: BABY ASPIRIN PO SCH (12:30)
[2019-01-30] MEDS: ENOXAPARIN SUB-Q SCH (12:31)
[2019-01-30] MEDS ORDERED: DIPRIVAN 10 MG/ML IV ONE (12:35)
[2019-01-30] MEDS ORDERED: NACL 0.9% 500 ML 500 ML ONE (12:38)
[2019-01-30] MEDS ORDERED: XYLOCAINE MPF 2% ONE (12:48)
[2019-01-30] MEDS ORDERED: HURRICAINE ONE 20% TOPICAL SPRAY MM NR (13:00)
--- NOTE | 2019-01-30 13:09 | Post Anesthesia Evaluation ---
- Post Anesthesia Evaluation Patient Participated: Yes Airway Patent: Yes Stable Respiratory Function: Yes Nausea/Vomiting: No Temp > 96.8F: Yes Pain Manageable: Yes Adequeate Hydration: Yes Anesthesia Complications: No Block Receding Appropriately: Not Applicable Patient on Ventilator: No
--- NOTE | 2019-01-30 13:15 | Progress Note ---
Assessment and Plan Acute CVA Right P2 occlusion on head CTA YULISSA pertinent for patent foramen ovale by agitated bubble saline, no evidence of endocarditis Essential hypertension Type II DM Non-compliance Tele reviewed - no evidence of atrial fibrillation Recommendations: Continue antiplatelet therapy and high intensity statin therapy. Strongly doubt cryptogenic stroke in a 63 year old female with uncontrolled DM and hypertension secondary to non-compliance No further inpatient cardiac work-up is needed and patient may follow-up with us as outpatient Subjective Date of service: 01/30/19 Principal diagnosis: Stroke Interval history: Patient has no CV complaints today Tele reviewed - no evidence of atrial fibrillation Objective Vital Signs Temp Pulse Pulse Pulse Pulse Pulse Pulse 01/30/19 13:01 98 H 01/30/19 12:57 77 01/30/19 12:52 01/30/19 11:24 98.2 F 87 01/30/19 11:03 81 01/30/19 10:00 71 82 82 82 01/30/19 05:01 82 01/30/19 04:39 76 01/29/19 23:37 98.3 F 92 H 01/29/19 22:00 86 01/29/19 21:27 01/29/19 20:00 98.3 F 101 H 01/29/19 18:35 106 H 01/29/19 17:29 107 H 01/29/19 17:00 103 H Pulse Pulse Pulse Resp Resp Resp Resp 01/30/19 13:01 24 01/30/19 12:57 22 01/30/19 12:52 76 18 01/30/19 11:24 18 01/30/19 11:03 01/30/19 10:00 82 82 19 01/30/19 05:01 19 01/30/19 04:39 01/29/19 23:37 19 01/29/19 22:00 01/29/19 21:27 19 01/29/19 20:00 18 01/29/19 18:35 01/29/19 17:29 01/29/19 17:00 BP BP BP BP BP Pulse Ox Pulse Ox 01/30/19 13:01 154/121 01/30/19 12:57 165/79 94 01/30/19 12:52 165/79 01/30/19 11:24 145/88 97 01/30/19 11:03 153/85 96 01/30/19 10:00 98 01/30/19 05:01 138/80 97 01/30/19 04:39 01/29/19 23:37 145/67 91 01/29/19 22:00 01/29/19 21:27 99 01/29/19 20:00 138/87 95 01/29/19 18:35 155/97 95 01/29/19 17:29 150/90 93 01/29/19 17:00 Pulse Ox Pulse Ox 01/30/19 13:01 90 01/30/19 12:57 01/30/19 12:52 97 01/30/19 11:24 01/30/19 11:03 01/30/19 10:00 01/30/19 05:01 01/30/19 04:39 01/29/19 23:37 01/29/19 22:00 01/29/19 21:27 01/29/19 20:00 01/29/19 18:35 01/29/19 17:29 01/29/19 17:00 - Physical Examination HEENT: Positive: PERRL Neck: Positive: neck supple Cardiac: Positive: Reg Rate and Rhythm Lungs: Positive: Normal Exam Abdomen: Positive: Soft Extremities: Absent: edema
[2019-01-30] MEDS ORDERED: NACL 0.9% 500 ML 500 ML IV SCH (14:00)
--- NOTE | 2019-01-30 15:04 | Progress Note ---
Assessment and Plan Acute CVA -Telemetry neurology recommended not a candidate for TPA -CT Head showed Subacute nonhemorrhagic right posterior cerebral artery territory infarction. 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 LDL is 112 Hypertensive urgency -BP is 184/103 -Hx Hypertension -Started the patient on amlodipine and HCTZ - adjust medications as needed Headache -Likely secondary to hypertensive urgency and CVA -Continue supportive care DM2 -HgbA1c is 9.3 -Continue metformin and scheduled insulin -SSI coverage prn Tobacco abuse -Current every day smoker -Counseled for cessation -Nicotine patch Leukocytosis -Likely reactive -No sign of infection, we will continue to monitor DVT PPX -on Lovenox Disposition; Discussed with CM, patient is unfunded and her house has stairs. Pending placement Brief History 63-year-old -[place] female who is ongoing smoker history of hypertension and diabetes who presents to [facility] ED with complaints of right temporal headache, left hand numbness, left lower extremity weakness, patient gait, and left visual deficits for the past 2 days. Hospitalist Physical GENERAL: well-developed and well-nourished elderly -[place] female lying on bed appeared to be in no discomfort. HEENT: Normocephalic. Atraumatic. No conjunctival congestion or icterus. Patient has moist mucous membranes. NECK: Supple. Trachea midline. CHEST/LUNGS: Clear to auscultated bilaterally, breathing nonlabored. No wheezes crackles or rhonchi. HEART/CARDIOVASCULAR: Regular in rate and rhythm. S1 and S2 positive. ABDOMEN: Abdomen is soft, nontender. Patient has normal bowel sounds. SKIN: There is no rash. Warm and dry. NEURO: Left-sided weakness and neglect. Follows command. MUSCULOSKELETAL: No joint effusion or tenderness. EXTRIMITY: No edema, no cyanosis or clubbing. PSYCH: Cooperative. Subjective Date of service: 01/30/19 Principal diagnosis: Stroke Interval history: Patient seen and examined. Medical records and medication list reviewed. No acute event overnight noted by the RN. Patient denies any chest pain or difficulty breathing. Patient is tolerating diet. Discussed plan of care at bedside with patient, CM and her daughter. Objective - Constitutional Vitals: Vital Signs - 12hr 01/30/19 01/30/19 01/30/19 04:39 05:01 10:00 Temperature Pulse Rate 76 82 71 Pulse Rate [ 82 Apical] Pulse Rate [ Intra-Procedure ] Pulse Rate [ 82 Left Dorsalis Pedis] Pulse Rate [ 82 Left Radial] Pulse Rate [ Post-Procedure] Pulse Rate [Pre -Procedure] Pulse Rate [ 82 Right Dorsalis Pedis] Pulse Rate [ 82 Right Radial] Respiratory 19 19 Rate Respiratory Rate [Intra- Procedure] Respiratory Rate [Post- Procedure] Respiratory Rate [Pre- Procedure] Blood Pressure Blood Pressure [Intra- Procedure] Blood Pressure 138/80 [Left] Blood Pressure [Post-Procedure ] Blood Pressure [Pre-Procedure] O2 Sat by Pulse 97 98 Oximetry O2 Sat by Pulse Oximetry [ Intra-Procedure ] O2 Sat by Pulse Oximetry [Post -Procedure] O2 Sat by Pulse Oximetry [Pre- Procedure] 01/30/19 01/30/19 01/30/19 11:03 11:24 12:52 Temperature 98.2 F Pulse Rate 81 87 Pulse Rate [ Apical] Pulse Rate [ Intra-Procedure ] Pulse Rate [ Left Dorsalis Pedis] Pulse Rate [ Left Radial] Pulse Rate [ Post-Procedure] Pulse Rate [Pre 76 -Procedure] Pulse Rate [ Right Dorsalis Pedis] Pulse Rate [ Right Radial] Respiratory 18 Rate Respiratory Rate [Intra- Procedure] Respiratory Rate [Post- Procedure] Respiratory 18 Rate [Pre- Procedure] Blood Pressure 153/85 145/88 Blood Pressure [Intra- Procedure] Blood Pressure [Left] Blood Pressure [Post-Procedure ] Blood Pressure 165/79 [Pre-Procedure] O2 Sat by Pulse 96 97 Oximetry O2 Sat by Pulse Oximetry [ Intra-Procedure ] O2 Sat by Pulse Oximetry [Post -Procedure] O2 Sat by Pulse 97 Oximetry [Pre- Procedure] 01/30/19 01/30/19 01/30/19 12:57 13:01 13:10 Temperature Pulse Rate Pulse Rate [ Apical] Pulse Rate [ 77 Intra-Procedure ] Pulse Rate [ Left Dorsalis Pedis] Pulse Rate [ Left Radial] Pulse Rate [ 98 H 98 H Post-Procedure] Pulse Rate [Pre -Procedure] Pulse Rate [ Right Dorsalis Pedis] Pulse Rate [ Right Radial] Respiratory Rate Respiratory 22 Rate [Intra- Procedure] Respiratory 24 22 Rate [Post- Procedure] Respiratory Rate [Pre- Procedure] Blood Pressure Blood Pressure 165/79 [Intra- Procedure] Blood Pressure [Left] Blood Pressure 154/121 165/80 [Post-Procedure ] Blood Pressure [Pre-Procedure] O2 Sat by Pulse Oximetry O2 Sat by Pulse 94 Oximetry [ Intra-Procedure ] O2 Sat by Pulse 90 97 Oximetry [Post -Procedure] O2 Sat by Pulse Oximetry [Pre- Procedure] 01/30/19 01/30/19 13:20 13:30 Temperature Pulse Rate Pulse Rate [ Apical] Pulse Rate [ Intra-Procedure ] Pulse Rate [ Left Dorsalis Pedis] Pulse Rate [ Left Radial] Pulse Rate [ 90 97 H Post-Procedure] Pulse Rate [Pre -Procedure] Pulse Rate [ Right Dorsalis Pedis] Pulse Rate [ Right Radial] Respiratory Rate Respiratory Rate [Intra- Procedure] Respiratory 20 20 Rate [Post- Procedure] Respiratory Rate [Pre- Procedure] Blood Pressure Blood Pressure [Intra- Procedure] Blood Pressure [Left] Blood Pressure 145/85 147/68 [Post-Procedure ] Blood Pressure [Pre-Procedure] O2 Sat by Pulse Oximetry O2 Sat by Pulse Oximetry [ Intra-Procedure ] O2 Sat by Pulse 94 98 Oximetry [Post -Procedure] O2 Sat by Pulse Oximetry [Pre- Procedure] - Labs CBC & Chem 7: 01/28/19 06:33 01/28/19 06:33 Labs: Abnormal lab results 01/29/19 01/29/19 01/30/19 Range/Units 17:24 21:18 11:31 POC Glucose 136 H 194 H 135 H (70-105)
[2019-01-31] MEDS: MELATONIN PO PRN ×2 (00:06→21:36)
[2019-01-31] MEDS: GLUCOPHAGE PO SCH ×2 (08:00→17:44)
[2019-01-31] MEDS: HumaLOG SUB-Q SCH ×4 (08:00→21:38)
[2019-01-31] MEDS: BABY ASPIRIN PO SCH (09:38)
[2019-01-31] MEDS: COLACE PO SCH ×2 (09:39→21:40)
[2019-01-31] MEDS: ENOXAPARIN SUB-Q SCH (09:39)
[2019-01-31] MEDS: HCTZ PO SCH (09:39)
[2019-01-31] MEDS: HABITROL TD SCH (09:41)
--- NOTE | 2019-01-31 11:20 | Progress Note ---
Assessment and Plan Acute CVA YULISSA pertinent for patent foramen ovale by agitated bubble saline, no evidence of endocarditis Essential hypertension Type II DM Non-compliance Tele reviewed - no evidence of atrial fibrillation Normal LVEF 60-65% by echocardiogram. No further cardiac workup indicated. We will follow intermittently. Subjective Date of service: 01/31/19 Principal diagnosis: Stroke Interval history: No cardiac complaints. Stable sinus rhythm on telemetry. Objective Vital Signs Temp Pulse Pulse Pulse Pulse Pulse Pulse 01/31/19 10:00 78 01/31/19 09:38 75 01/31/19 08:19 82 82 82 01/31/19 07:36 98.2 F 01/31/19 04:05 98.3 F 84 01/31/19 00:02 98.5 F 79 01/30/19 23:00 76 01/30/19 19:59 79 01/30/19 19:20 98.2 F 90 01/30/19 16:42 98.2 F 82 01/30/19 13:30 97 H 01/30/19 13:20 90 01/30/19 13:10 98 H 01/30/19 13:01 98 H 01/30/19 12:57 77 01/30/19 12:52 01/30/19 12:00 82 01/30/19 11:24 98.2 F 87 Pulse Pulse Pulse Resp Resp Resp Resp 01/31/19 10:00 01/31/19 09:38 01/31/19 08:19 82 82 19 01/31/19 07:36 18 01/31/19 04:05 18 01/31/19 00:02 18 01/30/19 23:00 01/30/19 19:59 01/30/19 19:20 18 01/30/19 16:42 18 01/30/19 13:30 20 01/30/19 13:20 20 01/30/19 13:10 22 01/30/19 13:01 24 01/30/19 12:57 22 01/30/19 12:52 76 18 01/30/19 12:00 01/30/19 11:24 18 BP BP BP BP Pulse Ox Pulse Ox Pulse Ox 01/31/19 10:00 01/31/19 09:38 146/68 01/31/19 08:19 99 01/31/19 07:36 153/89 01/31/19 04:05 126/81 92 01/31/19 00:02 144/87 97 01/30/19 23:00 01/30/19 19:59 01/30/19 19:20 144/88 100 01/30/19 16:42 147/69 89 01/30/19 13:30 147/68 98 01/30/19 13:20 145/85 94 01/30/19 13:10 165/80 97 01/30/19 13:01 154/121 90 01/30/19 12:57 165/79 94 01/30/19 12:52 165/79 01/30/19 12:00 01/30/19 11:24 145/88 97 Pulse Ox 01/31/19 10:00 01/31/19 09:38 01/31/19 08:19 01/31/19 07:36 01/31/19 04:05 01/31/19 00:02 01/30/19 23:00 01/30/19 19:59 01/30/19 19:20 01/30/19 16:42 01/30/19 13:30 01/30/19 13:20 01/30/19 13:10 01/30/19 13:01 01/30/19 12:57 01/30/19 12:52 97 01/30/19 12:00 01/30/19 11:24 - Physical Examination General: No Apparent Distress HEENT: Positive: PERRL Neck: Positive: trachea midline Cardiac: Positive: Reg Rate and Rhythm Lungs: Positive: Normal Breath Sounds Extremities: Absent: edema
--- NOTE | 2019-01-31 17:39 | Progress Note ---
Assessment and Plan Acute CVA -Telemetry neurology recommended not a candidate for TPA -CT Head showed Subacute nonhemorrhagic right posterior cerebral artery territory infarction. 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 LDL is 112 Hypertensive urgency -BP is 184/103 -Hx Hypertension -Started the patient on amlodipine and HCTZ - adjust medications as needed Headache -Likely secondary to hypertensive urgency and CVA -Continue supportive care DM2 -HgbA1c is 9.3 -Continue metformin and scheduled insulin -SSI coverage prn Tobacco abuse -Current every day smoker -Counseled for cessation -Nicotine patch Leukocytosis -Likely reactive -No sign of infection, we will continue to monitor DVT PPX -on Lovenox Disposition; Discussed with CM, patient is unfunded and her house has stairs. Pending placement Brief History 63-year-old -[place] female who is ongoing smoker history of hypertension and diabetes who presents to [facility] ED with complaints of right temporal headache, left hand numbness, left lower extremity weakness, patient gait, and left visual deficits for the past 2 days. Hospitalist Physical GENERAL: well-developed and well-nourished elderly -J[place]ican female lying on bed appeared to be in no discomfort. HEENT: Normocephalic. Atraumatic. No conjunctival congestion or icterus. Patient has moist mucous membranes. NECK: Supple. Trachea midline. CHEST/LUNGS: Clear to auscultated bilaterally, breathing nonlabored. No wheezes crackles or rhonchi. HEART/CARDIOVASCULAR: Regular in rate and rhythm. S1 and S2 positive. ABDOMEN: Abdomen is soft, nontender. Patient has normal bowel sounds. SKIN: There is no rash. Warm and dry. NEURO: Left-sided weakness and neglect. Follows command. MUSCULOSKELETAL: No joint effusion or tenderness. EXTRIMITY: No edema, no cyanosis or clubbing. PSYCH: Cooperative. Subjective Date of service: 01/31/19 Principal diagnosis: Stroke Interval history: Patient seen and examined. Medical records and medication list reviewed. No acute event overnight noted by the RN. Patient denies any chest pain or difficulty breathing. Patient is tolerating diet. Discussed plan of care at bedside with patient, CM and her daughter. Objective - Constitutional Vitals: Vital Signs - 12hr 01/31/19 01/31/19 01/31/19 07:36 08:19 09:38 Temperature 98.2 F Pulse Rate 75 Pulse Rate [ 82 Apical] Pulse Rate [ 82 Left Dorsalis Pedis] Pulse Rate [ 82 Left Radial] Pulse Rate [ 82 Right Dorsalis Pedis] Pulse Rate [ 82 Right Radial] Respiratory 18 19 Rate Blood Pressure 153/89 146/68 Blood Pressure [Left] O2 Sat by Pulse 99 Oximetry 01/31/19 01/31/19 01/31/19 10:00 11:49 12:00 Temperature 97.9 F Pulse Rate 78 86 72 Pulse Rate [ Apical] Pulse Rate [ Left Dorsalis Pedis] Pulse Rate [ Left Radial] Pulse Rate [ Right Dorsalis Pedis] Pulse Rate [ Right Radial] Respiratory 18 Rate Blood Pressure Blood Pressure 118/71 [Left] O2 Sat by Pulse Oximetry - Labs CBC & Chem 7: 02/01/19 09:47 02/01/19 09:47 Labs: Abnormal lab results 01/30/19 01/31/19 01/31/19 Range/Units 19:37 07:43 11:43 POC Glucose 157 H 151 H 209 H (70-105) 01/31/19 Range/Units 16:03 POC Glucose 54 L (70-105)
[2019-01-31] MEDS: PERCOCET 5/325 PO PRN (21:36)
--- NOTE | 2019-02-01 01:25 | Event Note ---
<JAYRO LATHAM - Last Filed: 02/01/19 01:23> Date: 02/01/19 nurse called because pt had 12 run ov Vtach, pt is asymptomatic, stat EKG ordered, continue cardiac monitoring, notified cardiology was recommended <TOMASZ FRANCO - Last Filed: 02/01/19 09:13> Start BB, obtain CBc, BMP, Mg
[2019-02-01] MEDS: HumaLOG SUB-Q SCH ×4 (07:55→21:33)
[2019-02-01] MEDS: GLUCOPHAGE PO SCH ×2 (08:35→17:21)
[2019-02-01 10:15] LABS: Hematocrit 43.7 % (30.3-42.9); Hemoglobin 14.4 gm/dl (10.1-14.3); Mean Corpuscular HGB Conc 33 % (30-34); Mean Corpuscular Volume 87 fl (79-97); Platelet Count 277 K/mm3 (140-440); Red Blood Count 5.03 M/mm3 (3.65-5.03); Red Cell Distribution Width 13.2 % (13.2-15.2)
[2019-02-01 10:33] LABS: BUN/Creatinine Ratio 27; Blood Urea Nitrogen 19 mg/dL (7-17); Calcium 11.7 mg/dL (8.4-10.2); Hemolysis Index 10
[2019-02-01] MEDS: BABY ASPIRIN PO SCH (11:02)
[2019-02-01] MEDS: COLACE PO SCH ×2 (11:02→21:32)
[2019-02-01] MEDS: HABITROL TD SCH (11:02)
[2019-02-01] MEDS: HCTZ PO SCH (11:03)
[2019-02-01] MEDS: ENOXAPARIN SUB-Q SCH (11:03)
[2019-02-01] MEDS: COREG PO SCH ×2 (11:06→21:32)
[2019-02-01] MEDS ORDERED: MAGNESIUM SULFATE 2GM/50ML 2 GM/50 ML BAG IV ONE (11:16)
--- NOTE | 2019-02-01 15:42 | Progress Note ---
Assessment and Plan NSVT - noted on tele - start BB, check BMP, Mg - follow cardiology eval Acute CVA -Telemetry neurology recommended not a candidate for TPA -CT Head showed Subacute nonhemorrhagic right posterior cerebral artery territory infarction. 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 LDL is 112 Hypertensive urgency -BP is 184/103 -Hx Hypertension -Started the patient on amlodipine and HCTZ - adjust medications as needed Headache -Likely secondary to hypertensive urgency and CVA -Continue supportive care DM2 -HgbA1c is 9.3 -Continue metformin and scheduled insulin -SSI coverage prn Tobacco abuse -Current every day smoker -Counseled for cessation -Nicotine patch Leukocytosis -Likely reactive -No sign of infection, we will continue to monitor DVT PPX -on Lovenox Disposition; Discussed with CM, patient is unfunded and her house has stairs. Pending placement Brief History 63-year-old -Danish female who is ongoing smoker history of hypertension and diabetes who presents to [facility] ED with complaints of right temporal headache, left hand numbness, left lower extremity weakness, patient gait, and left visual deficits for the past 2 days. Hospitalist Physical GENERAL: well-developed and well-nourished elderly -Danish female lying on bed appeared to be in no discomfort. HEENT: Normocephalic. Atraumatic. No conjunctival congestion or icterus. Patient has moist mucous membranes. NECK: Supple. Trachea midline. CHEST/LUNGS: Clear to auscultated bilaterally, breathing nonlabored. No wheezes crackles or rhonchi. HEART/CARDIOVASCULAR: Regular in rate and rhythm. S1 and S2 positive. ABDOMEN: Abdomen is soft, nontender. Patient has normal bowel sounds. SKIN: There is no rash. Warm and dry. NEURO: Left-sided weakness and neglect. Follows command. MUSCULOSKELETAL: No joint effusion or tenderness. EXTRIMITY: No edema, no cyanosis or clubbing. PSYCH: Cooperative. Subjective Date of service: 02/01/19 Principal diagnosis: Stroke Interval history: Patient seen and examined. Medical records and medication list reviewed. Noted NSVT on monitor. Patient denies any chest pain or difficulty breathing. Patient is tolerating diet. Discussed plan of care at bedside with patient, CM. Objective - Constitutional Vitals: Vital Signs - 12hr 02/01/19 02/01/19 02/01/19 04:46 07:38 08:35 Temperature 98.9 F 98.1 F Pulse Rate 79 70 67 Pulse Rate [ Apical] Pulse Rate [ Left Dorsalis Pedis] Respiratory 16 18 Rate Blood Pressure 159/86 187/110 137/79 O2 Sat by Pulse 96 94 98 Oximetry 02/01/19 02/01/19 02/01/19 10:00 11:01 11:04 Temperature Pulse Rate 88 Pulse Rate [ 88 Apical] Pulse Rate [ 88 Left Dorsalis Pedis] Respiratory 17 Rate Blood Pressure 132/91 132/91 O2 Sat by Pulse 98 Oximetry 02/01/19 02/01/19 11:06 15:26 Temperature Pulse Rate 88 87 Pulse Rate [ Apical] Pulse Rate [ Left Dorsalis Pedis] Respiratory Rate Blood Pressure 132/91 148/85 O2 Sat by Pulse 92 Oximetry - Labs CBC & Chem 7: 02/01/19 09:47 02/01/19 09:47 Labs: Abnormal lab results 01/31/19 01/31/19 02/01/19 Range/Units 16:03 21:31 07:47 Hgb (10.1-14.3) gm/dl Hct (30.3-42.9) % Carbon Dioxide (22-30) mmol/L BUN (7-17) mg/dL Glucose (65-100) mg/dL POC Glucose 54 L 176 H 133 H (70-105) Calcium (8.4-10.2) mg/dL Magnesium (1.7-2.3) mg/dL 02/01/19 02/01/19 02/01/19 Range/Units 09:47 09:47 12:29 Hgb 14.4 H (10.1-14.3) gm/dl Hct 43.7 H (30.3-42.9) % Carbon Dioxide 21 L (22-30) mmol/L BUN 19 H (7-17) mg/dL Glucose 135 H (65-100) mg/dL POC Glucose 220 H (70-105) Calcium 11.7 H (8.4-10.2) mg/dL Magnesium 1.60 L (1.7-2.3) mg/dL
--- NOTE | 2019-02-01 18:13 | Progress Note ---
Assessment and Plan Acute CVA YULISSA pertinent for patent foramen ovale by agitated bubble saline, no evidence of endocarditis Essential hypertension Type II DM Non-compliance Tele reviewed - no evidence of atrial fibrillation, 12 beat run of VT Normal LVEF 60-65% by echocardiogram. No further cardiac workup indicated. Continue AV stephane margarito and maximize as needed. Keep K>4 and Mg>2. We will follow intermittently. Subjective Date of service: 02/01/19 Principal diagnosis: Stroke Interval history: No acute events. Resting comfortably. Patient had a 12 beat run of VT overnight. No symptoms. Hemodynamically stable. Objective Vital Signs Temp Pulse Pulse Pulse Resp BP Pulse Ox 02/01/19 15:26 87 148/85 92 02/01/19 11:06 88 132/91 02/01/19 11:04 88 132/91 02/01/19 11:01 132/91 02/01/19 10:00 88 88 17 98 02/01/19 08:35 67 137/79 98 02/01/19 07:38 98.1 F 70 18 187/110 94 02/01/19 04:46 98.9 F 79 16 159/86 96 02/01/19 00:11 98.6 F 85 16 137/84 98 01/31/19 23:00 84 01/31/19 20:43 99.6 F 98 H 20 145/82 94 - Physical Examination General: No Apparent Distress HEENT: Positive: PERRL Neck: Positive: trachea midline Abdomen: Positive: Soft Extremities: Absent: edema - Labs and Meds CBC 02/01/19 Range/Units 09:47 WBC 9.4 (4.5-11.0) K/mm3 RBC 5.03 (3.65-5.03) M/mm3 Hgb 14.4 H (10.1-14.3) gm/dl Hct 43.7 H (30.3-42.9) % Plt Count 277 (140-440) K/mm3 Comprehensive Metabolic Panel 02/01/19 Range/Units 09:47 Sodium 138 (137-145) mmol/L Potassium 3.9 (3.6-5.0) mmol/L Chloride 100.7 (98-107) mmol/L Carbon Dioxide 21 L (22-30) mmol/L BUN 19 H (7-17) mg/dL Creatinine 0.7 (0.7-1.2) mg/dL Glucose 135 H (65-100) mg/dL Calcium 11.7 H (8.4-10.2) mg/dL
[2019-02-01] MEDS: MELATONIN PO PRN (21:32)
[2019-02-02] MEDS: HCTZ PO SCH (10:58)
[2019-02-02] MEDS: GLUCOPHAGE PO SCH ×2 (10:58→20:34)
[2019-02-02] MEDS: ENOXAPARIN SUB-Q SCH (10:58)
[2019-02-02] MEDS: COREG PO SCH ×2 (10:58→22:43)
[2019-02-02] MEDS: BABY ASPIRIN PO SCH (10:59)
[2019-02-02] MEDS: HumaLOG SUB-Q SCH ×3 (11:00→21:08)
[2019-02-02] MEDS: HABITROL TD SCH (11:00)
[2019-02-02] MEDS: COLACE PO SCH ×2 (11:00→22:43)
--- NOTE | 2019-02-02 16:22 | Progress Note ---
Assessment and Plan NSVT - noted on tele on 02/01/19 - started BB, repleted Mg - cardiology recommended to cont current Mx Hypomagnesemia, repleted Acute CVA -Telemetry neurology recommended not a candidate for TPA -CT Head showed Subacute nonhemorrhagic right posterior cerebral artery territory infarction. 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 LDL is 112 Hypertensive urgency -BP is 184/103 -Hx Hypertension -Started the patient on amlodipine and HCTZ - adjust medications as needed Headache -Likely secondary to hypertensive urgency and CVA -Continue supportive care DM2 -HgbA1c is 9.3 -Continue metformin and scheduled insulin -SSI coverage prn Tobacco abuse -Current every day smoker -Counseled for cessation -Nicotine patch Leukocytosis -Likely reactive -No sign of infection, we will continue to monitor DVT PPX -on Lovenox Disposition; Discussed with CM, patient is unfunded and her house has stairs. Pending placement Brief History 63-year-old -Barb[place] female who is ongoing smoker history of hypertension and diabetes who presents to [facility] ED with complaints of right temporal headache, left hand numbness, left lower extremity weakness, patient gait, and left visual deficits for the past 2 days. Hospitalist Physical GENERAL: well-developed and well-nourished elderly -[place] female lying on bed appeared to be in no discomfort. HEENT: Normocephalic. Atraumatic. No conjunctival congestion or icterus. Patient has moist mucous membranes. NECK: Supple. Trachea midline. CHEST/LUNGS: Clear to auscultated bilaterally, breathing nonlabored. No wheezes crackles or rhonchi. HEART/CARDIOVASCULAR: Regular in rate and rhythm. S1 and S2 positive. ABDOMEN: Abdomen is soft, nontender. Patient has normal bowel sounds. SKIN: There is no rash. Warm and dry. NEURO: Left-sided weakness and neglect. Follows command. MUSCULOSKELETAL: No joint effusion or tenderness. EXTRIMITY: No edema, no cyanosis or clubbing. PSYCH: Cooperative. Subjective Date of service: 02/02/19 Principal diagnosis: Stroke Interval history: Patient seen and examined. Medical records and medication list reviewed. Patient denies any chest pain or difficulty breathing. Patient is tolerating diet. Discussed plan of care at bedside with patient, JANET. Objective - Constitutional Vitals: Vital Signs - 12hr 02/02/19 02/02/19 02/02/19 08:14 10:00 10:58 Temperature 98.6 F Pulse Rate 60 59 L 85 Pulse Rate [ 59 L Left Dorsalis Pedis] Respiratory 18 Rate Blood Pressure 165/76 O2 Sat by Pulse 96 Oximetry 02/02/19 10:59 Temperature Pulse Rate 85 Pulse Rate [ Left Dorsalis Pedis] Respiratory Rate Blood Pressure O2 Sat by Pulse Oximetry - Labs CBC & Chem 7: 02/01/19 09:47 02/01/19 09:47 Labs: Abnormal lab results 02/01/19 02/02/19 02/02/19 Range/Units 21:25 08:24 12:24 POC Glucose 128 H 125 H 124 H (70-105)
[2019-02-03] MEDS: HumaLOG SUB-Q SCH ×4 (09:26→22:25)
[2019-02-03] MEDS: COREG PO SCH ×2 (09:27→22:23)
[2019-02-03] MEDS: HCTZ PO SCH (09:27)
[2019-02-03] MEDS: BABY ASPIRIN PO SCH (09:27)
[2019-02-03] MEDS: COLACE PO SCH ×2 (09:27→22:22)
[2019-02-03] MEDS: ENOXAPARIN SUB-Q SCH (09:28)
[2019-02-03] MEDS: GLUCOPHAGE PO SCH ×2 (09:28→23:58)
[2019-02-03] MEDS: HABITROL TD SCH (09:28)
[2019-02-03] MEDS ORDERED: D50W (25GM) Syringe IV PRN (11:00)
--- NOTE | 2019-02-03 12:51 | Progress Note ---
Assessment and Plan NSVT - noted on tele on 02/01/19 - started BB, repleted Mg - cardiology recommended to cont current Mx Hypomagnesemia, repleted Acute CVA -Telemetry neurology recommended not a candidate for TPA -CT Head showed Subacute nonhemorrhagic right posterior cerebral artery territory infarction. 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 LDL is 112 Hypertensive urgency -BP is 184/103 -Hx Hypertension -Started the patient on amlodipine and HCTZ - adjust medications as needed Headache -Likely secondary to hypertensive urgency and CVA -Continue supportive care DM2 -HgbA1c is 9.3 -Continue metformin and scheduled insulin -SSI coverage prn Tobacco abuse -Current every day smoker -Counseled for cessation -Nicotine patch Leukocytosis -Likely reactive -No sign of infection, we will continue to monitor DVT PPX -on Lovenox Disposition; Discussed with CM, patient is unfunded and her house has stairs. Pending placement Brief History 63-year-old -Irish female who is ongoing smoker history of hypertension and diabetes who presents to [facility] ED with complaints of right temporal headache, left hand numbness, left lower extremity weakness, patient gait, and left visual deficits for the past 2 days. Hospitalist Physical GENERAL: well-developed and well-nourished elderly -Irish female lying on bed appeared to be in no discomfort. HEENT: Normocephalic. Atraumatic. No conjunctival congestion or icterus. Patient has moist mucous membranes. NECK: Supple. Trachea midline. CHEST/LUNGS: Clear to auscultated bilaterally, breathing nonlabored. No wheezes crackles or rhonchi. HEART/CARDIOVASCULAR: Regular in rate and rhythm. S1 and S2 positive. ABDOMEN: Abdomen is soft, nontender. Patient has normal bowel sounds. SKIN: There is no rash. Warm and dry. NEURO: Left-sided weakness and neglect. Follows command. MUSCULOSKELETAL: No joint effusion or tenderness. EXTRIMITY: No edema, no cyanosis or clubbing. PSYCH: Cooperative. Subjective Date of service: 02/03/19 Principal diagnosis: Stroke Interval history: Patient seen and examined. Medical records and medication list reviewed. Patient denies any chest pain or difficulty breathing. Patient is tolerating diet. Discussed plan of care at bedside with patient, CM. Objective - Constitutional Vitals: Vital Signs - 12hr 02/03/19 02/03/19 02/03/19 04:43 07:32 09:27 Temperature 98.6 F 98.1 F Pulse Rate 78 78 Respiratory 16 18 Rate Blood Pressure 152/91 144/91 O2 Sat by Pulse 96 Oximetry 02/03/19 02/03/19 09:28 10:00 Temperature Pulse Rate 78 Respiratory 18 Rate Blood Pressure 144/91 O2 Sat by Pulse Oximetry - Labs CBC & Chem 7: 02/01/19 09:47 02/01/19 09:47 Labs: Abnormal lab results 02/02/19 02/02/19 02/03/19 Range/Units 12:24 20:49 07:35 POC Glucose 124 H 124 H 139 H (70-105) 02/03/19 Range/Units 11:40 POC Glucose 149 H (70-105)
[2019-02-04] MEDS: HumaLOG SUB-Q SCH ×4 (07:30→22:12)
[2019-02-04] MEDS: HABITROL TD SCH (10:33)
[2019-02-04] MEDS: GLUCOPHAGE PO SCH ×2 (10:33→17:00)
[2019-02-04] MEDS: HCTZ PO SCH (10:33)
[2019-02-04] MEDS: BABY ASPIRIN PO SCH (10:34)
[2019-02-04] MEDS: ENOXAPARIN SUB-Q SCH (10:35)
[2019-02-04] MEDS: COLACE PO SCH ×2 (10:35→22:12)
[2019-02-04] MEDS: COREG PO SCH ×2 (10:35→22:12)
[2019-02-04] MEDS: TYLENOL PO PRN (15:30)
--- NOTE | 2019-02-04 15:32 | Progress Note ---
Assessment and Plan NSVT - noted on tele on 02/01/19 - started BB, repleted Mg - cardiology recommended to cont current Mx Hypomagnesemia, repleted Acute CVA -Telemetry neurology recommended not a candidate for TPA -CT Head showed Subacute nonhemorrhagic right posterior cerebral artery territory infarction. 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 LDL is 112 Hypertensive urgency -BP is 184/103 -Hx Hypertension -Started the patient on amlodipine and HCTZ - adjust medications as needed Headache -Likely secondary to hypertensive urgency and CVA -Continue supportive care DM2 -HgbA1c is 9.3 -Continue metformin and scheduled insulin -SSI coverage prn Tobacco abuse -Current every day smoker -Counseled for cessation -Nicotine patch Leukocytosis -Likely reactive -No sign of infection, we will continue to monitor DVT PPX -on Lovenox Disposition; Discussed with CM, patient is unfunded and her house has stairs. Pending placement Brief History 63-year-old -Greek female who is ongoing smoker history of hypertension and diabetes who presents to [facility] ED with complaints of right temporal headache, left hand numbness, left lower extremity weakness, patient gait, and left visual deficits for the past 2 days. Hospitalist Physical GENERAL: well-developed and well-nourished elderly -Greek female lying on bed appeared to be in no discomfort. HEENT: Normocephalic. Atraumatic. No conjunctival congestion or icterus. Patient has moist mucous membranes. NECK: Supple. Trachea midline. CHEST/LUNGS: Clear to auscultated bilaterally, breathing nonlabored. No wheezes crackles or rhonchi. HEART/CARDIOVASCULAR: Regular in rate and rhythm. S1 and S2 positive. ABDOMEN: Abdomen is soft, nontender. Patient has normal bowel sounds. SKIN: There is no rash. Warm and dry. NEURO: Left-sided weakness and neglect. Follows command. MUSCULOSKELETAL: No joint effusion or tenderness. EXTRIMITY: No edema, no cyanosis or clubbing. PSYCH: Cooperative. Subjective Date of service: 02/04/19 Principal diagnosis: Stroke Interval history: Patient seen and examined. Medical records and medication list reviewed. Patient denies any chest pain or difficulty breathing. Patient is tolerating diet. Discussed plan of care at bedside with patient, JANET. Objective - Constitutional Vitals: Vital Signs - 12hr 02/04/19 02/04/19 02/04/19 04:04 08:02 10:00 Temperature 98.0 F 98.3 F Pulse Rate 72 63 66 Pulse Rate [ 80 Apical] Respiratory 18 18 20 Rate Blood Pressure 137/71 158/86 O2 Sat by Pulse 99 94 94 Oximetry 02/04/19 02/04/19 02/04/19 10:34 10:35 11:55 Temperature 98.3 F Pulse Rate 63 63 82 Pulse Rate [ Apical] Respiratory 18 Rate Blood Pressure 158/86 158/86 119/89 O2 Sat by Pulse 97 Oximetry - Labs CBC & Chem 7: 02/01/19 09:47 02/01/19 09:47 Labs: Abnormal lab results 02/03/19 02/03/19 02/04/19 Range/Units 17:24 20:20 08:12 POC Glucose 154 H 276 H 131 H (70-105) 02/04/19 Range/Units 12:08 POC Glucose 135 H (70-105)
[2019-02-05] MEDS: HumaLOG SUB-Q SCH ×4 (07:30→22:09)
[2019-02-05] MEDS: GLUCOPHAGE PO SCH ×2 (09:46→18:00)
[2019-02-05] MEDS: HCTZ PO SCH (09:47)
[2019-02-05] MEDS: COREG PO SCH ×2 (09:47→22:09)
[2019-02-05] MEDS: HABITROL TD SCH (09:47)
[2019-02-05] MEDS: BABY ASPIRIN PO SCH (09:47)
[2019-02-05] MEDS: ENOXAPARIN SUB-Q SCH (09:48)
[2019-02-05] MEDS: COLACE PO SCH (09:49)
--- NOTE | 2019-02-05 12:13 | Progress Note ---
Assessment and Plan NSVT - noted on tele on 02/01/19 - started BB, repleted Mg - cardiology recommended to cont current Mx Hypomagnesemia, repleted Acute CVA -Telemetry neurology recommended not a candidate for TPA -CT Head showed Subacute nonhemorrhagic right posterior cerebral artery territory infarction. 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 LDL is 112 Hypertensive urgency -BP is 184/103 -Hx Hypertension -Started the patient on amlodipine and HCTZ - adjust medications as needed Headache -Likely secondary to hypertensive urgency and CVA -Continue supportive care DM2 -HgbA1c is 9.3 -Continue metformin and scheduled insulin -SSI coverage prn Tobacco abuse -Current every day smoker -Counseled for cessation -Nicotine patch Leukocytosis -Likely reactive -No sign of infection, we will continue to monitor DVT PPX -on Lovenox Disposition; Discussed with CM, patient is unfunded and her house has stairs. Pending placement Brief History 63-year-old -[place] female who is ongoing smoker history of hypertension and diabetes who presents to [facility] ED with complaints of right temporal headache, left hand numbness, left lower extremity weakness, patient gait, and left visual deficits for the past 2 days. Hospitalist Physical GENERAL: well-developed and well-nourished elderly -[place] female lying on bed appeared to be in no discomfort. HEENT: Normocephalic. Atraumatic. No conjunctival congestion or icterus. Patient has moist mucous membranes. NECK: Supple. Trachea midline. CHEST/LUNGS: Clear to auscultated bilaterally, breathing nonlabored. No wheezes crackles or rhonchi. HEART/CARDIOVASCULAR: Regular in rate and rhythm. S1 and S2 positive. ABDOMEN: Abdomen is soft, nontender. Patient has normal bowel sounds. SKIN: There is no rash. Warm and dry. NEURO: Left-sided weakness and neglect. Follows command. MUSCULOSKELETAL: No joint effusion or tenderness. EXTRIMITY: No edema, no cyanosis or clubbing. PSYCH: Cooperative. Subjective Date of service: 02/05/19 Principal diagnosis: Stroke Interval history: Patient seen and examined. Medical records and medication list reviewed. Patient denies any chest pain or difficulty breathing. Patient is tolerating diet. Discussed plan of care at bedside with patient, JANET. Objective - Constitutional Vitals: Vital Signs - 12hr 02/05/19 02/05/19 02/05/19 04:13 08:14 09:47 Temperature 98 F 98.5 F Pulse Rate 74 84 84 Respiratory 20 18 Rate Blood Pressure 142/94 142/94 Blood Pressure 121/74 [Left] O2 Sat by Pulse 95 Oximetry 02/05/19 09:48 Temperature Pulse Rate 84 Respiratory Rate Blood Pressure 142/94 Blood Pressure [Left] O2 Sat by Pulse Oximetry - Labs CBC & Chem 7: 02/01/19 09:47 02/01/19 09:47 Labs: Abnormal lab results 02/04/19 02/04/19 02/05/19 Range/Units 12:08 21:28 00:07 POC Glucose 135 H 116 H 125 H (70-105) 02/05/19 Range/Units 08:25 POC Glucose 125 H (70-105)
[2019-02-05] MEDS: TYLENOL PO PRN (12:31)
[2019-02-06] MEDS: TYLENOL PO PRN ×2 (03:48→10:57)
[2019-02-06] MEDS: GLUCOPHAGE PO SCH ×2 (10:45→20:14)
[2019-02-06] MEDS: HumaLOG SUB-Q SCH ×4 (10:50→22:29)
[2019-02-06] MEDS: BABY ASPIRIN PO SCH (10:56)
[2019-02-06] MEDS: HCTZ PO SCH (10:57)
[2019-02-06] MEDS: COREG PO SCH ×2 (10:59→22:29)
[2019-02-06] MEDS: ENOXAPARIN SUB-Q SCH (11:00)
[2019-02-06] MEDS: HABITROL TD SCH (11:00)
--- NOTE | 2019-02-06 14:30 | Discharge Summary ---
Providers - Providers Date of Admission: 01/25/19 20:18 Date of discharge: 02/06/19 Attending physician: TOMASZ FRANCO 01/25/19 Consult to Physician [CONS] Routine Comment: Consulting Provider: MAGI COBOS Physician Instructions: Reason For Exam: CVA 01/25/19 20:18 Consult to Dietitian/Nutrition [CONS] Routine Physician Instructions: Reason For Exam: Reason for Consult: Nutrition Recommendations Reason for Consult: Diet education Occupational Therapy Evaluate and Treat [CONS] Routine Comment: Reason For Exam: Neuro deficits Physical Therapy Evaluation and Treat [CONS] Routine Comment: Reason For Exam: Neuro deficits Primary care physician: PIERCING SPECIALIST Hospitalization Condition: Stable Pertinent studies: CXR CT head CTA head/neck MRI brain MRA head 2d echo' YULISSA Hospital course: 63-year-old -[place] female who is ongoing smoker history of hypertension and diabetes who presents to [facility] ED with complaints of right temporal headache, left hand numbness, left lower extremity weakness, patient gait, and left visual deficits for the past 2 days. Discharge diagnosis and Mx: NSVT - noted on tele on 02/01/19 - started BB, repleted Mg - cardiology recommended to cont current Mx Hypomagnesemia, repleted Acute CVA -Telemetry neurology recommended not a candidate for TPA -CT Head showed Subacute nonhemorrhagic right posterior cerebral artery territory infarction. 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 LDL is 112 Hypertensive urgency -BP is 184/103 -Hx Hypertension -Started the patient on amlodipine and HCTZ - adjust medications as needed Headache -Likely secondary to hypertensive urgency and CVA -Continue supportive care DM2 -HgbA1c is 9.3 -Continue metformin and scheduled insulin -SSI coverage prn Tobacco abuse -Current every day smoker -Counseled for cessation -Nicotine patch Leukocytosis -Likely reactive -No sign of infection, we will continue to monitor DVT PPX -on Lovenox Disposition; Home with with family supervision Hospitalist Physical GENERAL: well-developed and well-nourished elderly -[place] female lying on bed appeared to be in no discomfort. HEENT: Normocephalic. Atraumatic. No conjunctival congestion or icterus. Patient has moist mucous membranes. NECK: Supple. Trachea midline. CHEST/LUNGS: Clear to auscultated bilaterally, breathing nonlabored. No wheezes crackles or rhonchi. HEART/CARDIOVASCULAR: Regular in rate and rhythm. S1 and S2 positive. ABDOMEN: Abdomen is soft, nontender. Patient has normal bowel sounds. SKIN: There is no rash. Warm and dry. NEURO: Left-sided weakness and neglect. Follows command. MUSCULOSKELETAL: No joint effusion or tenderness. EXTRIMITY: No edema, no cyanosis or clubbing. PSYCH: Cooperative. Time spent for discharge: 34 minutes Core Measure Documentation - Palliative Care Palliative Care/ Comfort Measures: Not Applicable - Core Measures Any of the following diagnoses?: stroke - Stroke Discharge Requirements Statin for LDL = or >70 mg/dl on DC: Yes Anticoag for atrial fib/atrial flutter: Not Applicable Antithrombotic for ischemic stroke: Yes Exam - Constitutional Vitals: Temp Pulse Resp BP Pulse Ox 97.6 F 84 18 120/69 97 02/06/19 11:20 02/06/19 11:20 02/06/19 11:20 02/06/19 11:20 02/06/19 11:20 Plan Activity: up only with assistance, fall precautions Weight Bearing Status: Non-Weight Bearing Diet: low fat, low salt Special Instructions: record daily BP diary Durable Medical Equipment Needed Upon Discharge: Wheelchair Follow up with: PRIMARY MD DONNIE [Primary Care Provider] - 3-5 Days HERIBERTO SAMUEL MD [Staff Physician] - 7 Days Prescriptions: AtorvaSTATin [Lipitor] 40 mg PO QHS #30 tablet Aspirin [Aspirin BABY CHEW TAB] 81 mg PO QDAY #30 tab.chew Carvedilol [Coreg] 3.125 mg PO BID #60 tablet hydroCHLOROthiazide [HCTZ] 25 mg PO QDAY #30 tablet Metformin HCl [metFORMIN] 1,000 mg PO BID #60 amLODIPine [Norvasc] 10 mg PO QDAY #30 tablet Insulin NPH Hum/Reg Insulin Hm [Relion Novolin 70-30 Vial] 15 units SQ BID #10 ml
[2019-02-07] MEDS ORDERED: NORCO 5/325 PO PRN (08:22)
--- NOTE | 2019-02-07 09:33 | Cat Scan Report ---
CT HEAD WITHOUT CONTRAST INDICATION / CLINICAL INFORMATION: headaches. TECHNIQUE: Axial imaging performed from the skull apex through the skull base without the use of cont rast. Sagittal and coronal reformatted images. All CT scans at this location are performed using CT dose reduction for ALARA by means of automated exposure control. COMPARISON: CT brain dated 01/25/2019. MR brain dated 01/27/2019. FINDINGS: CEREBRAL PARENCHYMA: Late subacute to early chronic right THERMODYNAMICS ENGINEER ischemic infarct continues to evolve. N o new areas of acute ischemia are suspected on noncontrast CT. Mild chronic ischemic changes in the w maverick matter is stable. HEMORRHAGE: None. EXTRA-AXIAL SPACES: Normal in size and morphology for the patient's age. VENTRICULAR SYSTEM: Normal in size and morphology for the patient's age. MIDLINE SHIFT OR HERNIATION: None. CEREBELLUM / BRAINSTEM: No significant abnormality. CALVARIUM: No significant abnormality. ORBITS: Normal as visualized. Chronic right medial orbital wall fracture is noted. PARANASAL SINUSES / MASTOID AIR CELLS: Normal as visualized. SOFT TISSUES of HEAD: No significant abnormality. ADDITIONAL FINDINGS: None. IMPRESSION: Evolving right THERMODYNAMICS ENGINEER infarct. No acute process is identified. Signer Name: Corey Shields Jr, MD Signed: 02/07/2019 9:29 AM Workstation Name: [id number]
[2019-02-07] MEDS: HumaLOG SUB-Q SCH ×2 (09:42→11:30)
[2019-02-07] MEDS: GLUCOPHAGE PO SCH (09:42)
[2019-02-07] MEDS: HCTZ PO SCH (09:44)
[2019-02-07 09:45] VITALS: BP 134/74
[2019-02-07] MEDS: HABITROL TD SCH (09:45)
[2019-02-07] MEDS: ENOXAPARIN SUB-Q SCH (09:45)
[2019-02-07] MEDS: COREG PO SCH (09:45)
[2019-02-07] MEDS: BABY ASPIRIN PO SCH (09:45)
--- NOTE | 2019-02-07 12:22 | Discharge Summary ---
Providers - Providers Date of Admission: 01/25/19 20:18 Date of discharge: 02/07/19 Attending physician: CINDA ZAMORA 01/25/19 Consult to Physician [CONS] Routine Comment: Consulting Provider: MAGI COBOS Physician Instructions: Reason For Exam: CVA 01/25/19 20:18 Consult to Dietitian/Nutrition [CONS] Routine Physician Instructions: Reason For Exam: Reason for Consult: Nutrition Recommendations Reason for Consult: Diet education Occupational Therapy Evaluate and Treat [CONS] Routine Comment: Reason For Exam: Neuro deficits Physical Therapy Evaluation and Treat [CONS] Routine Comment: Reason For Exam: Neuro deficits Primary care physician: BEADER TENDER Hospitalization Condition: Stable Hospital course: Patient is a 63-year-old -[place] woman with a history of tobacco dependency, hypertension and DM type 2 who presented to [facility] ED with complaints of right temporal headache, left hand numbness, left lower extremity weakness, patient gait, and left visual deficits for the past 2 days. 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 -Acute ischemic stroke: treat with ASA and statin -NSVT, noted on tele on 02/01/19, started BB, repleted Mg, cardiology recommended to cont current Mx -Hypomagnesemia, repleted -Hypertensive urgency: started on antihypertensives, low salt diet -Headache--Likely secondary to hypertensive urgency and CVA -DM2 with complication of uncontrolled hyperglycemia-HgbA1c is 9.3-Continue metformin and scheduled insulin-SSI coverage prn -Tobacco abuse-Current every day smoker-Counseled for cessation-Nicotine patch -Leukocytosis -Likely reactive -No sign of infection, we will continue to monitor -DVT PPX-on Lovenox Disposition; d/c home, Discussed with CM, patient is unfunded, unable to be placed, so will discharge home. Disposition: DC-01 TO HOME OR SELFCARE Time spent for discharge: 35 minutes Core Measure Documentation - Palliative Care Palliative Care/ Comfort Measures: Not Applicable - Core Measures Any of the following diagnoses?: stroke - VTE Discharge Requirements Deep Vein Thrombosis/Pulmonary Embolism Present on Admission: No Has pt received <5 days of overlap therapy or INR<2.0: No Anticoagulant overlap therapy prescribed at discharge: No Contraindication No Overlap Therapy order at DC: Not Indicated - Stroke Discharge Requirements Statin for LDL = or >70 mg/dl on DC: Yes Anticoag for atrial fib/atrial flutter: Not Applicable Reason for no anticoag for AF/F on DC: Not Indicated Antithrombotic for ischemic stroke: Yes Exam - Physical Exam Narrative exam: Gen: WDWN, NAD, Awake, Alert, Orientated HEENT: NCAT, EOMI, PERRL, OP Clear Neck: supple, no adenopathy, no thyromegaly, no JVD CVS/Heart: RRR, normal S1S2, pulses present bilaterally Chest/Lungs: CTA B, Symmetrical chest expansion, good air entry bilaterally GI/Abdomen: soft, NTND, good bowel sounds, no guarding or rebound /Bladder: no suprapubic tenderness, no CVA or paraspinal tenderness Extermity/Skin: no c/c/e, no obvious rash MSK: FROM x 4 Neuro: CN 2-12 grossly intact, no new focal deficits Psych: calm - Constitutional Vitals: Temp Pulse Resp BP Pulse Ox 98.4 F 82 19 134/74 99 02/07/19 08:38 02/07/19 10:00 02/07/19 10:00 02/07/19 09:45 02/07/19 10:00 Plan Activity: up only with assistance, fall precautions, other (no strenous activity unless cleared by PCP) Diet: low salt, diabetic Special Instructions: record daily BP diary, record blood sugar diary (three times a day) Follow up with: PRIMARY CAREMD [Primary Care Provider] - 3-5 Days HERIBERTO SAMUEL MD [Staff Physician] - 7 Days SOM HAQ MD [Staff Physician] - 7 Days Prescriptions: AtorvaSTATin [Lipitor] 40 mg PO QHS #30 tablet Aspirin [Aspirin BABY CHEW TAB] 81 mg PO QDAY #30 tab.chew Carvedilol [Coreg] 3.125 mg PO BID #60 tablet hydroCHLOROthiazide [HCTZ] 25 mg PO QDAY #30 tablet Metformin HCl [metFORMIN] 1,000 mg PO BID #60 amLODIPine [Norvasc] 10 mg PO QDAY #30 tablet Insulin NPH Hum/Reg Insulin Hm [Relion Novolin 70-30 Vial] 15 units SQ BID #10 ml
== END 2019-02-07 14:43 | disposition home health service (06) | DRG 65 ==
LOC: ED 15:12 → 4A 20:18
PROVIDERS: ADMIT Internal Medicine; ATTEND Internal Medicine
DX: I63.9 Cerebral infarction, unspecified (principal); I47.1 Supraventricular tachycardia; I16.0 Hypertensive urgency; F17.200 Nicotine dependence, unspecified, uncomplicated; I10 Essential (primary) hypertension; E83.42 Hypomagnesemia; D72.829 Elevated white blood cell count, unspecified; E66.9 Obesity, unspecified; E11.65 Type 2 diabetes mellitus with hyperglycemia; Z71.6 Tobacco abuse counseling; Z91.19 Patient's noncompliance with other medical treatment and regimen; Z68.30 Body mass index [BMI] 30.0-30.9, adult; Z79.4 Long term (current) use of insulin
CPT/HCPCS: 36415; 70450; 70496; 70498; 70544; 70551; 71045; 80048; 80053; 80061; 81001; 82962; 83036; 83735; 84484; 85025; 85027; 85610; 85730; 87040; 93005; 93010; 93306; 93312; 93320; 93325; 93880; 96374; 99406; G0378; A9270-GY; J0360; J1200; J1650; J1815; J2060; J2405; J2704; J2765; J3475; J7030; J7040; Q9967